=== PATIENT | male | born 1965 | race Caucasian/White ===

== ENCOUNTER 2019-10-15 13:30 | Inpatient (IN) | payer SELFPAY ==
[2019-10-15 14:12] LABS: #Eosinphils 0.2 thou/uL (0.0-0.7); #Lymphocytes 1.1 thou/uL (1.20-3.40); #Monocytes 0.7 thou/uL (0.11-0.59); #Neutrophils 5.5 thou/uL (1.40-6.50); %Basophils 0.3 % (0.0-1.0); %Eosinophils 2.8 % (0.0-10.0); %Monocytes 9.9 % (0.0-10.0); %Neutrophils 73.1 % (42.0-75.0); Hemoglobin 13.9 g/dL (14.0-18.0); Mean Corpuscular HGB CONC 32.9 g/dL (32.0-36.0); Mean Corpuscular Hemoglobin 29.9 pg (27.0-31.0); Mean Corpuscular Volume 90.8 fL (78.0-98.0); Mean Platelet Volume 9.9 fL (7.4-10.4); Platelet Count 269 thou/uL (130-400); RBC Distribution Width 13.4 % (11.5-14.5); Red Blood Cell (RBC) Count 4.66 mill/uL (4.70-6.10); White Blood Cell (WBC) Count 7.5 thou/uL (4.8-10.8)
--- NOTE | 2019-10-15 14:26 | RAD ---
Portable frontal chest radiograph: 10/15/2019 COMPARISON: None HISTORY: Dyspnea, chest pain with shortness of breath FINDINGS: Lungs are clear. Heart and mediastinal contours appear within normal limits. IMPRESSION: No acute findings.
[2019-10-15 14:39] LABS: ALT (SGPT) 12 U/L (8-55); AST (SGOT) 16 U/L (5-34); Albumin 4.3 g/dL (3.5-5.0); Alkaline Phosphatase 116 U/L (40-110); Anion Gap 12 mmol/L (10-20); BUN (Urea Nitrogen) 18 mg/dL (8.4-25.7); Bilirubin, Total 0.7 mg/dL (0.2-1.2); CK (CPK) 79 U/L (30-200); Calc. Creatinine Clearance 0 mL/min (70-130); Calcium 9.6 mg/dL (7.8-10.44); Carbon Dioxide 25 mmol/L (22-29); Chloride 106 mmol/L (98-107); Estimated GFR-MDRD 70; Globulin 2.7 g/dL (2.4-3.5); Glucose 105 mg/dL (70-105); Potassium 4.2 mmol/L (3.5-5.1); Sodium 139 mmol/L (136-145)
[2019-10-15 15:14] LABS: CKMB 1.6 ng/mL (0-6.6)
[2019-10-15] MEDS ORDERED: Acetaminophen 650 MG Suppository PR PRN (16:08)
--- NOTE | 2019-10-15 17:46 | PDOC.HHP ---
Hospitalist HPI - History of Present Illness Fatigue and shortness of breath History of Present Illness: Patient states he has a known history of heart failure and was recently discharged from hospice a month ago and has been advised to go back into hospice. According to the patient today is the first day he leaves his home in 3 weeks due to generalized weakness. He states he came down with a cold and flu like symptoms since 2-3 weeks. He tried driving down to [place] for a pool competition and states he felt completely drained. He has had a persistent dry cough and states it is triggered with deep inspiration. Denies any hemoptysis but has had blood draining from his nose as well as clear drainage. Denies any fevers or chills. No complaints of chest pain. 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 ED Course: EKG showed no ST changes or T wave abnormalities. Labs notable for a trop of 0.664, BNP 778, Hgb 13. 9, Hematocrit 42.3, WCC 7.5, Platelets 269. Na+ 139, K+ 4.2, BUN 18, Creat 1.11, GFR 70, LFTs normal Given aspirin and Lovenox 1 mg/kg Hospitalist ROS - Review of Systems Constitutional: reports: weakness, malaise Eyes: denies: pain, vision change, conjunctivae inflammation, eyelid inflammation, redness, other ENT: reports: nose discharge (clear and at times bloody at night). denies: ear pain, ear discharge, nose pain, nose congestion, mouth pain, mouth swelling, throat pain, throat swelling, other Respiratory: reports: cough (triggered by deep inspiration), SOB with excertion Cardiovascular: denies: chest pain, palpitations, orthopnea, paroxysmal noc. dyspnea, edema, light headedness, other Gastrointestinal: denies: nausea, vomiting, abdominal pain, diarrhea, constipation, melena, hematochezia, other Genitourinary: denies: dysuria, frequency, incontinence, hematuria, retention, other Musculoskeletal: denies: neck pain, shoulder pain, arm pain, back pain, hand pain, leg pain, foot pain, other Skin: denies: rash, lesions, zaria, bruising, other Neurological: denies: weakness, numbness, incoordination, change in speech, confusion, seizures, other Hospitalist History - Past Medical History Cardiac: reports: CHF - Past Surgical History Past Surgical History: reports: Other (Right wrist surgery Neck gland removal Right leg Colon surgery(colostomy)) - Social History Smoking Status: Current every day smoker Alcohol: reports: None Drugs: reports: none, Other (previous drug use years ago) - Exam General Appearance: NAD, awake alert Eye: PERRL, anicteric sclera ENT: normocephalic atraumatic, no oropharyngeal lesions Neck: supple, symmetric, no lymphadenopathy Heart: RRR, no murmur, no gallops, no rubs, normal peripheral pulses Respiratory: CTAB, no wheezes, no rales, no ronchi, normal chest expansion Gastrointestinal: soft, non-tender, non-distended, normal bowel sounds, no guarding, no rigidity (cf) Extremities: no edema Skin: normal turgor, no lesions, no rashes Neurological: cranial nerve grossly intact Musculoskeletal: normal tone, normal strength Psychiatric: A&O x 3, flat affect Hospitalist Results - Labs Result Diagrams: 10/15/19 14:01 10/15/19 14:01 Lab results: WBC 7.5 thou/uL (4.8-10.8) 10/15/19 14:01 Hgb 13.9 g/dL (14.0-18.0) L 10/15/19 14:01 Hct 42.3 % (42.0-52.0) 10/15/19 14:01 MCV 90.8 fL (78.0-98.0) 10/15/19 14:01 Plt Count 269 thou/uL (130-400) 10/15/19 14:01 Neutrophils % 73.1 % (42.0-75.0) 10/15/19 14:01 Sodium 139 mmol/L (136-145) 10/15/19 14:01 Potassium 4.2 mmol/L (3.5-5.1) 10/15/19 14:01 Chloride 106 mmol/L (98-107) 10/15/19 14:01 Carbon Dioxide 25 mmol/L (22-29) 10/15/19 14:01 BUN 18 mg/dL (8.4-25.7) 10/15/19 14:01 Creatinine 1.11 mg/dL (0.7-1.3) 10/15/19 14:01 Glucose 105 mg/dL (70-105) 10/15/19 14:01 Calcium 9.6 mg/dL (7.8-10.44) 10/15/19 14:01 Total Bilirubin 0.7 mg/dL (0.2-1.2) 10/15/19 14:01 AST 16 U/L (5-34) 10/15/19 14:01 ALT 12 U/L (8-55) 10/15/19 14:01 Alkaline Phosphatase 116 U/L (40-110) H 10/15/19 14:01 Creatine Kinase 79 U/L (30-200) 10/15/19 14:01 CK-MB (CK-2) 1.6 ng/mL (0-6.6) 10/15/19 14:01 Troponin I 0.664 ng/mL (< 0.028) H* 10/15/19 14:01 B-Natriuretic Peptide 778.1 pg/mL (0-100) H 10/15/19 14:01 Serum Total Protein 7.0 g/dL (6.0-8.3) 10/15/19 14:01 Albumin 4.3 g/dL (3.5-5.0) 10/15/19 14:01 - Radiology Interpretation Chest x-ray Status: report reviewed by me (Unremarkable) Hospitalist H&P A/P - Problem (1) NSTEMI (non-ST elevated myocardial infarction) Code(s): I21.4 - NON-ST ELEVATION (NSTEMI) MYOCARDIAL INFARCTION Status: Acute (2) Heart failure Code(s): I50.9 - HEART FAILURE, UNSPECIFIED Status: Acute Qualifiers: Heart failure chronicity: acute on chronic (3) Generalized weakness Code(s): R53.1 - WEAKNESS Status: Acute (4) Mild epistaxis Code(s): R04.0 - EPISTAXIS Status: Acute - Plan Plan: Patient given aspirin and Lovenox in the ED for NSTEMI. No chest pain. Consult placed to cardiology. Statin and Coreg as per discussion with Dr. Saxena. Patient apparently is DNAR and seeking to go back to hospice, discharged 1 month ago. Previously had a cath that showed normal coronaries. Has a hx of heavy steroid and cocaine use. Echo ordered. Last echo done showed EF 15%. No evidence of fluid retention. Will hold lovenox. Respiratory viral panel, as main complaint generalized weakness/flu like symptoms. Cardiac rehab consulted, inpatient and outpatient Palliative care consulted as well.
[2019-10-15] MEDS ORDERED: Aspirin 325 MG TAB ONE (17:56)
[2019-10-15 18:06] LABS: Critical Call Chem Troponin I RESULT DECREASING; Troponin I 0.595 ng/mL (< 0.028)
--- NOTE | 2019-10-15 18:21 | PDOC.EVN ---
Event Note - Event Note Event Note: i saw the patient and spoke with him in regards to his heart failure. He does not want icd and does not want any heroic measures. He has not been taking his meds and feels he has gained weight. I asked him if he wanted us to consult cardiology but he stated no. He know he has HF. He does want hospice. 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
[2019-10-15] MEDS ORDERED: Enoxaparin Sodium 100 MG/ML SYRINGE ONE (18:30)
[2019-10-15 20:44] LABS: Critical Call Chem Troponin I RESULT DECREASING; Troponin I 0.529 ng/mL (< 0.028)
[2019-10-15] MEDS: Nitroglycerin 0.4 MG TAB (25 Tab Bottle) SL PRN (20:45)
[2019-10-15] MEDS: Carvedilol 3.125 MG TAB PO SCH (21:41)
[2019-10-15] MEDS: Famotidine/PF 20 mg/2ml Vial SLOW IVP SCH (22:18)
[2019-10-15] MEDS: Atorvastatin Calcium 10 MG TAB PO SCH (22:19)
[2019-10-15] MEDS: Morphine 2 MG/ML SYRINGE SLOW IVP PRN (22:20)
[2019-10-16] MEDS: Nitroglycerin 0.4 MG TAB (25 Tab Bottle) SL PRN ×4 (01:37→08:23)
[2019-10-16 02:47] VITALS: BMI 27.2
[2019-10-16] MEDS: Morphine 2 MG/ML SYRINGE SLOW IVP PRN ×5 (03:24→20:34)
[2019-10-16 05:19] LABS: #Eosinphils 0.3 thou/uL (0.0-0.7); #Lymphocytes 1.8 thou/uL (1.20-3.40); #Monocytes 0.8 thou/uL (0.11-0.59); #Neutrophils 4.4 thou/uL (1.40-6.50); %Basophils 0.6 % (0.0-1.0); %Eosinophils 4.1 % (0.0-10.0); %Lymphocytes 24.7 % (21.0-51.0); %Monocytes 10.6 % (0.0-10.0); Hemoglobin 13.6 g/dL (14.0-18.0); Mean Corpuscular HGB CONC 32.8 g/dL (32.0-36.0); Mean Corpuscular Hemoglobin 29.7 pg (27.0-31.0); Mean Corpuscular Volume 90.5 fL (78.0-98.0); Mean Platelet Volume 10.4 fL (7.4-10.4); Platelet Count 248 thou/uL (130-400); RBC Distribution Width 13.3 % (11.5-14.5); White Blood Cell (WBC) Count 7.3 thou/uL (4.8-10.8)
[2019-10-16 05:42] LABS: Anion Gap 15 mmol/L (10-20); BUN (Urea Nitrogen) 19 mg/dL (8.4-25.7); Calc. Creatinine Clearance 102 mL/min (70-130); Calcium 9.5 mg/dL (7.8-10.44); Carbon Dioxide 21 mmol/L (22-29); Cardiac Risk 8.3 (Less than 4.5); Chloride 106 mmol/L (98-107); Cholesterol 198 mg/dl (< 200 Desired); Estimated GFR-MDRD 67; Glucose 126 mg/dL (70-105); HDL Cholesterol 24 mg/dL (>60 Neg Risk); LDL Cholesterol, Calculated 121 mg/dL; Potassium 3.6 mmol/L (3.5-5.1); Sodium 138 mmol/L (136-145); Triglycerides 264 mg/dL (Less than 150)
[2019-10-16] MEDS: Furosemide 20 MG/2 ML VIAL SLOW IVP SCH (08:35)
[2019-10-16] MEDS: Famotidine/PF 20 mg/2ml Vial SLOW IVP SCH ×2 (08:36→20:34)
[2019-10-16] MEDS: Carvedilol 3.125 MG TAB PO SCH ×2 (08:36→16:35)
[2019-10-16] MEDS ORDERED: Lisinopril 2.5 MG TAB PO SCH (09:00)
[2019-10-16] MEDS ORDERED: FLU VACC QS2019-20(6MOS UP)/PF 60 MCG/0.5 ML SYRINGE IM ONE (09:00)
--- NOTE | 2019-10-16 09:40 | PDOC.PALCO ---
Palliative Care Consult - Consult Details Requesting Physician: Dr Acevedo Reason for Consult: advance directives assistance, complex decision-making Family Members Present: none - Pertinent HPI 54 year old male with known heart failure. Previous hospice patient. Was discharged from hospice secondary to non compliance with morphine and visits. [facility] was previous provider of hospice services. Paitnet states he has had increase in weakness and fatigue, not able to leave his home for over 3 weeks secondary to symptoms. Pain is a 8/10 at times and across his chest , non radiating. - Pertinent PMH History of CHF, hypertension, past injury resulting in colostomy from bowel injury that has been repaired. - Social History Smoking Status: Smokes 11 or more cig/day Smoking: cigarettes Alcohol Use: occasional Drug Use History: none Living Situation: independent - Medications MAR Reviewed: Yes - Allergies Allergies/Adverse Reactions: Allergies Allergy/AdvReac Type Severity Reaction Status Date / Time No Known Allergies Allergy Verified 10/16/19 07:05 - Subjective Resting in bed, converses without shortness of breath, no o2 in use. Denies nausea, vomiting, headache, abdominal pain or discomfort, no difficulty urinating, negative for constipation. Positive for muscle weakness, cough non productive, clear drainage from nose with intermittent blood tinged mucous, weakness fatigue, shortness of breath with minimal exertion. - ROS Constitutional: malaise, sleep changes, weakness ENT: alteration in dentition, nose congestion, rhinorrhea Respiratory: shortness of breath with extertion Psychological: other (Denies depression but became tearful with conversation) - Objective Vital Signs: Vital Signs - Most Recent Temp Pulse Resp BP Pulse Ox 97.9 F 72 17 106/58 L 100 10/16/19 08:29 10/16/19 08:35 10/16/19 08:29 10/16/19 08:35 10/16/19 08:29 Palliative Performance Scale: 70 - Physical Exam Constitutional: NAD HEENT: EOMI, moist MMs, PERRLA, sclera anicteric Respiratory: clear to auscultation bilateral, unlabored breathing Cardiovascular: no significant murmur, RRR Gastrointestinal: soft, non-tender, positive bowel sounds (Scar to left mid abdominal wall) Genitourinary: continent Musculoskeletal: no cyanosis, no clubbing, no edema, pulses present Neurology: moves all 4 limbs, no focal deficits, normal sensation Lymphatic: no nodes Skin: cap refill <2 seconds, no lesions Psychiatric: normal affect - Problem List (1) Palliative care encounter Code(s): Z51.5 - ENCOUNTER FOR PALLIATIVE CARE Current Visit: Yes Status: Acute (2) Generalized weakness Code(s): R53.1 - WEAKNESS Current Visit: Yes Status: Acute (3) Heart failure Code(s): I50.9 - HEART FAILURE, UNSPECIFIED Current Visit: Yes Status: Acute Qualifiers: Heart failure chronicity: acute on chronic - Plan/Recommendations Plan: In history patient states that he lives in [place] the [place] alone but has a friend "Lita" who can assist in care for him. States that he has two children who he is estranged from Son 20 and Daughter 21. He also states that his and a 9 year old son perished in the floods in [place] a few years ago. Previous hospice care that was discontinued secondary to mis handling of narcotics and non compliance with appointments as per patient. States EF is 16% but did not notice documentation. *Discussed being followed by Cardiology/setting up appointment with pain clinic/ home health but patient did not want to pursue this as an option for discharge *States he desires to return to Hospice Care *Inquired if he thought he was depressed or had substance abuse concerns but he denied and did not want to peruse either avenue in further conversation or management. Will Santana RN will follow Palliative Care to address MPOA for patient Dr Saxena place Hospice consult with CM [60] minutes spent on this encounter with >50% of the time in counseling and coordination of care. Thank you for this very appropriate consult.
[2019-10-16 09:54] LABS: Medtox Reader # READER 1
[2019-10-16 09:55] LABS: Amphetamine Not Detected (NotDetected); Barbiturates Screen Not Detected (NotDetected); Benzodiazepine Screen Detected (NotDetected); Cocaine Metabolite Screen Not Detected (NotDetected); Medtox Control Line Valid? VALID (VALID); Methadone Not Detected (NotDetected); Methamphetamine Not Detected (NotDetected); Opiate Screen Detected (NotDetected); Oxycodone Screen Not Detected (NotDetected); Phencyclidine (PCP) Not Detected (NotDetected); THC/Cannabinoid Screen Not Detected (NotDetected); Tricyclic Screen Not Detected (NotDetected)
[2019-10-16] MEDS ORDERED: Levalbuterol HCl 0.63 MG/3 ML NEB NEB PRN (14:21)
--- NOTE | 2019-10-16 15:25 | PRG ---
DATE OF SERVICE: 10/16/2019 SUBJECTIVE: The patient was seen at bedside, admitted with weight gain, shortness of breath, and chest pain. The patient has positive troponins. As per the patient, he is a known case of cardiomyopathy and has been on hospice before. However, he was removed from hospice due to the patient traveling. As per the patient, he was performed a cath and he was offered AICD in the past, but he declined. Has a chest pain earlier, improved with morphine and nitroglycerin. Not in distress. OBJECTIVE: VITAL SIGNS: Temperature 97.4, pulse 91, respirations 22, oxygen saturation 95%, and blood pressure 115/72. GENERAL: The patient lying in bed comfortably, not in distress. HEENT: Conjunctivae normal. Oral mucosa moist. NECK: Supple. No JVD. No lymphadenopathy. CHEST: Normal vesicular breathing. No rhonchi. No wheezing. HEART: Sounds normal. No murmur. No gallop. No rub. ABDOMEN: Soft, benign, and nontender. No visceromegaly. EXTREMITIES: Negative edema of feet. LABORATORY DATA: BMP unremarkable except creatinine 1.15. Troponin 0.595, 0.529. ProBNP 778. LDL 121. CBC unremarkable except hemoglobin 13.6, white blood cells 7.3, and platelets 248. EKG, incomplete left bundle-branch block and nonspecific ST-T changes. IMPRESSION: 1. Acute on chronic systolic congestive heart failure. The patient has high proBNP and recently weight gain. Chest x-ray shows no acute findings. Continue Lasix. Continue to monitor fluid status. Continue oxygen. 2. Positive troponin, possible demand supply mismatch. As per the patient, he had a cardiac cath done in the past, which was negative. EKG showed left bundle-branch block, nonspecific ST-T changes. We will continue aspirin, statins, morphine pain medication. 3. History of nonischemic cardiomyopathy. As per the patient, he was offered automatic implantable cardioverter-defibrillator, but he refused. The patient had been seen in hospice. As per the patient, had been removed from hospice due to the patient traveling, he could not meet requirement for hospice. Discussed with the patient, he does not want any aggressive measures. He is DNR/DNI and wants transition back to hospice. Plan discussed with the patient and nursing staff. Job ID: [id number]
[2019-10-16] MEDS: Atorvastatin Calcium 10 MG TAB PO SCH (20:34)
--- NOTE | 2019-10-16 22:32 | CON ---
DATE OF CONSULTATION: HISTORY OF PRESENT ILLNESS: The patient is a 54-year-old gentleman with a history of nonischemic cardiomyopathy who presents with recurrent chest discomfort. The patient states that approximately 10 years ago he was diagnosed with a nonischemic cardiomyopathy, underwent cardiac catheterization, found to have normal coronary arteries. The patient has had a long history of persistent difficulty with chest discomfort. He underwent a repeat catheterization according to the patient three years ago. The patient once again was found to have normal coronary arteries. The patient has a known cardiomyopathy. He has been on hospice as he has declined to remain on hospice for the past year. He has declined on multiple occasions to have placement of an automatic implantable cardiac defibrillator. The patient presents once again with persistent left-sided chest discomfort. He was admitted for further evaluation. The patient states this chest pain is a continuous. PAST MEDICAL HISTORY: Cardiomyopathy. PAST SURGICAL HISTORY: Wrist surgery, leg surgery and colon surgery. SOCIAL HISTORY: Long history of tobacco abuse. ALLERGIES: NO KNOWN DRUG ALLERGIES. MEDICATIONS: See nursing list. PHYSICAL EXAMINATION: GENERAL: Well-developed gentleman who is anxious. VITAL SIGNS: Blood pressure 115/72. NECK: No jugular distention. LUNGS: Clear to auscultation. HEART: Regular rate and rhythm. Normal S1, S2. No murmurs. ABDOMEN: Nondistended. EXTREMITIES: Show no edema. VASCULAR: Radial pulses 2+. LABORATORY DATA: Sodium 138, potassium 3.6, chloride 106, bicarbonate 21, BUN 19, creatinine 1.1. Troponin was 0.0529. BNP 778. White blood cell count 7.3, hemoglobin 13.6, hematocrit 41.6 with platelets of 248. IMAGING: His EKG revealed him to have normal sinus rhythm with nonspecific interventricular conduction delay, T-wave abnormality suggestive of lateral ischemia. IMPRESSION: 1. Atypical chest discomfort. 2. Mildly elevated troponin level. 3. History of nonischemic cardiomyopathy. 4. Tobacco abuse. This gentleman presents with atypical chest pain. He has a history of cardiac cardiomyopathy and apparently has had 2 catheterizations, which have revealed normal coronary arteries. The patient has declined and placed on automatic implantable cardiac defibrillator. We will continue to treat the patient medically. We will follow this patient with you throughout his hospitalization. Job ID: [id number] [facility]
[2019-10-17] MEDS: Morphine 2 MG/ML SYRINGE SLOW IVP PRN ×6 (00:26→21:00)
[2019-10-17 04:57] LABS: #Eosinphils 0.4 thou/uL (0.0-0.7); #Lymphocytes 1.4 thou/uL (1.20-3.40); #Monocytes 0.8 thou/uL (0.11-0.59); #Neutrophils 5.2 thou/uL (1.40-6.50); %Basophils 0.6 % (0.0-1.0); %Eosinophils 4.8 % (0.0-10.0); %Lymphocytes 17.6 % (21.0-51.0); %Monocytes 10.7 % (0.0-10.0); %Neutrophils 66.4 % (42.0-75.0); Hemoglobin 13.9 g/dL (14.0-18.0); Mean Corpuscular HGB CONC 32.2 g/dL (32.0-36.0); Mean Corpuscular Hemoglobin 29.4 pg (27.0-31.0); Mean Corpuscular Volume 91.4 fL (78.0-98.0); Mean Platelet Volume 10.4 fL (7.4-10.4); Platelet Count 245 thou/uL (130-400); RBC Distribution Width 13.3 % (11.5-14.5); Red Blood Cell (RBC) Count 4.72 mill/uL (4.70-6.10); White Blood Cell (WBC) Count 7.8 thou/uL (4.8-10.8)
[2019-10-17] MEDS: Acetaminophen 325 MG TAB PO PRN ×2 (05:08→08:23)
[2019-10-17] MEDS: Nitroglycerin 0.4 MG TAB (25 Tab Bottle) SL PRN ×5 (05:08→08:33)
[2019-10-17 05:20] LABS: Anion Gap 12 mmol/L (10-20); BUN (Urea Nitrogen) 21 mg/dL (8.4-25.7); Calc. Creatinine Clearance 104 mL/min (70-130); Calcium 9.6 mg/dL (7.8-10.44); Carbon Dioxide 28 mmol/L (22-29); Chloride 103 mmol/L (98-107); Estimated GFR-MDRD 68; Glucose 89 mg/dL (70-105); Potassium 3.9 mmol/L (3.5-5.1); Sodium 139 mmol/L (136-145)
[2019-10-17] MEDS: Aspirin 81 mg Enteric Coated Tablet PO SCH (08:23)
[2019-10-17] MEDS ORDERED: Furosemide 100 MG/10 ML VIAL SLOW IVP SCH (09:00)
[2019-10-17] MEDS: Famotidine/PF 20 mg/2ml Vial SLOW IVP SCH ×2 (09:31→20:18)
[2019-10-17] MEDS: Furosemide 20 MG/2 ML VIAL SLOW IVP SCH (10:06)
[2019-10-17] MEDS: Carvedilol 3.125 MG TAB PO SCH ×2 (10:26→16:25)
[2019-10-17] MEDS: Lisinopril 2.5 MG TAB PO SCH ×2 (11:49→23:13)
--- NOTE | 2019-10-17 12:36 | PDOC.PALPN ---
Palliative Progress Note - Subjective Sitting in bed, his small dog is with him. Detached, only complaint is chest pressure that is mild, no pain. - Objective Vital Signs: Vital Signs - Most Recent Temp Pulse Resp BP Pulse Ox 97.6 F 91 18 110/73 94 L 10/17/19 11:47 10/17/19 11:49 10/17/19 11:47 10/17/19 11:49 10/17/19 11:47 - Physical Exam Constitutional: NAD HEENT: EOMI, moist MMs, sclera anicteric Respiratory: clear to auscultation bilateral, unlabored breathing Cardiovascular: no significant murmur, RRR Gastrointestinal: continent, positive bowel sounds Genitourinary: continent Musculoskeletal: no cyanosis, no edema, pulses present Neurology: moves all 4 limbs Skin: cap refill <2 seconds, no rash Psychiatric: A&O x 3 - Assessment (1) Palliative care encounter Code(s): Z51.5 - ENCOUNTER FOR PALLIATIVE CARE Current Visit: Yes Status: Acute (2) Generalized weakness Code(s): R53.1 - WEAKNESS Current Visit: Yes Status: Acute (3) Heart failure Code(s): I50.9 - HEART FAILURE, UNSPECIFIED Current Visit: Yes Status: Acute Qualifiers: Heart failure chronicity: acute on chronic - Plan Plan: Discussed options for discharge with patient. 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 [facility] [place] to [place]-evaluate patient. Also introduced again today option of Pain Clinic for pain medicaitons and to follow up with Heart Failure clinic. He would prefer to go back on hospice at this time for the total care they offer. Discussed also with A Izaguirre outbound supervisor Failure Coordinator. Will Santana payroll benefits administrator also to follow. [40] minutes spent on this encounter with >50% of the time in counseling and coordination of care. - ROS Constitutional: weakness, other (denies fever, poor appetite ) Eyes: other (denies vision changes) ENT: alteration in dentition Respiratory: shortness of breath with extertion, other (Denies cough, ) Cardiology: other Gastrointestinal: other (Denies abdominal pain, constipation) Musculoskeletal: other (Denies bone pain, ) Neurological: other (Denies headache, confusion, numbness)
[2019-10-17] MEDS: Furosemide 40 MG/4 ML VIAL SLOW IVP SCH (13:58)
[2019-10-17] MEDS ORDERED: Morphine 2 MG/ML SYRINGE SLOW IVP SCH (16:45)
--- NOTE | 2019-10-17 16:50 | PDOC.HOSPP ---
- Subjective Encounter Date: 10/17/19 Encounter Time: 16:48 Subjective: Chief complaint: shortness of breath Subjective: patient responding to lasix, urinating copiously, still has shortness of breath when he walks downstairs. Willing to back into hospice. Deneis chest pain. Some abdominal pain. - Objective Vital Signs & Weight: Vital Signs (12 hours) Temp Pulse Resp BP BP BP BP 10/17/19 15:14 97.6 F 81 16 113/78 10/17/19 14:02 109/66 10/17/19 11:49 91 110/73 10/17/19 11:47 97.6 F 91 18 110/73 10/17/19 10:30 110/82 10/17/19 08:19 97.5 F L 93 125/74 10/17/19 05:10 104/79 Pulse Ox 10/17/19 15:14 97 10/17/19 14:02 10/17/19 11:49 10/17/19 11:47 94 L 10/17/19 10:30 10/17/19 08:19 94 L 10/17/19 05:10 Weight Weight 211 lb 6.4 oz I&O: 10/16/19 10/17/19 10/18/19 06:59 06:59 06:59 Intake Total 1872 Output Total 2305 Balance -433 Result Diagrams: 10/17/19 03:56 10/17/19 03:55 Hospitalist ROS - Medication Medications: Active Medications Generic Name Dose Route Start Last Admin Trade Name Freq PRN Reason Stop Dose Admin Acetaminophen 650 mg 10/15/19 16:08 10/17/19 08:23 Tylenol PO 650 mg Q4H PRN Administration Headache/Fever/Mild Pain (1-3) Aspirin 81 mg 10/17/19 09:00 10/17/19 08:23 Ecotrin PO 81 mg DAILY LARISSA Administration Atorvastatin Calcium 10 mg 10/15/19 21:00 10/16/19 20:34 Lipitor PO 10 mg HS LARISSA Administration Carvedilol 3.125 mg 10/15/19 17:00 10/17/19 16:25 Coreg PO 3.125 mg BID-WM LARISSA Administration Famotidine 20 mg 10/15/19 21:00 10/17/19 09:31 Pepcid SLOW IVP 20 mg Q12HR LARISSA Administration Furosemide 40 mg 10/17/19 14:00 10/17/19 13:58 Lasix SLOW IVP 40 mg 0600,1400 LARISSA Administration Lisinopril 2.5 mg 10/17/19 09:00 10/17/19 11:49 Zestril PO 2.5 mg BID LARISSA Administration Morphine Sulfate 2 mg 10/15/19 18:13 10/17/19 16:25 Morphine SLOW IVP 2 mg Q4H PRN Administration Chest Pain Nitroglycerin 0.4 mg 10/15/19 17:29 10/17/19 08:33 Nitrostat SL 0.4 mg Q5MIN PRN Administration Chest Pain Sodium Chloride 10 ml 10/15/19 21:00 10/17/19 09:31 Flush - Normal Saline IVF 10 ml Q12HR LARISSA Administration - Exam General Appearance: NAD, awake alert Eye: PERRL, anicteric sclera ENT: normocephalic atraumatic, no oropharyngeal lesions Neck: supple, no JVD Heart: RRR, no murmur, no gallops, no rubs Respiratory: CTAB, no wheezes, no rales, no ronchi Gastrointestinal: soft, non-tender, non-distended, normal bowel sounds Extremities: no cyanosis, no clubbing, no edema Skin: no lesions, no rashes Neurological: cranial nerve grossly intact, normal sensation to touch, no weakness, no focal deficits Musculoskeletal: normal tone, normal strength Psychiatric: normal affect, normal behavior, A&O x 3 Hosp A/P - Plan Patient is a 54 year old male being treated for: # atypical chest discomfort with elevated troponin - appreciate cardiology evaluation, patient to be reevaluated to go back on hospice # history of NICM - patient was previously on hospice, no longer hospice but wants to go back to hospice # acute and chronic systolic CHF - echo reviewed, EF 10-15%, dilated L atrium, L ventricle, moderate MR/mild TR noted, continue current heart failure medications and lasix for diuresis, symptoms improved # history of tobacco abuse # abdominal pain - KUB ordered to rule out SBO or constipation Disposition - appreciate palliative care evaluation and assistance, patient with limited resources and exploring options for pain and heart failure clinic follow ups however patient wishes for hospice, case management note reviewed and patient rejected by [facility] and [facility] hesitant to take him back to their service, will continue to follow, appreciate case management efforts. 51 minutes care time over half of which counselling and coordination of care. all problems and patient new to me
--- NOTE | 2019-10-17 18:25 | RAD ---
KUB: 10/17/2019 COMPARISON: None HISTORY: Abdominal pain FINDINGS: Supine imaging limits assessment for free air and small bowel obstruction. The bowel gas pa ttern appears nonobstructed. No acute osseous abnormality is noted. IMPRESSION: No acute findings.
[2019-10-17] MEDS: Atorvastatin Calcium 10 MG TAB PO SCH (20:18)
[2019-10-18] MEDS: Morphine 2 MG/ML SYRINGE SLOW IVP PRN ×5 (00:53→22:17)
[2019-10-18] MEDS: Acetaminophen 325 MG TAB PO PRN (02:47)
[2019-10-18 04:11] LABS: #Eosinphils 0.4 thou/uL (0.0-0.7); #Lymphocytes 1.2 thou/uL (1.20-3.40); #Monocytes 0.8 thou/uL (0.11-0.59); #Neutrophils 4.8 thou/uL (1.40-6.50); %Basophils 0.5 % (0.0-1.0); %Eosinophils 4.9 % (0.0-10.0); %Lymphocytes 17.1 % (21.0-51.0); %Neutrophils 66.5 % (42.0-75.0); Hemoglobin 14.3 g/dL (14.0-18.0); Mean Corpuscular HGB CONC 32.8 g/dL (32.0-36.0); Mean Corpuscular Hemoglobin 29.6 pg (27.0-31.0); Mean Platelet Volume 9.5 fL (7.4-10.4); Platelet Count 240 thou/uL (130-400); RBC Distribution Width 13.1 % (11.5-14.5); Red Blood Cell (RBC) Count 4.85 mill/uL (4.70-6.10); White Blood Cell (WBC) Count 7.3 thou/uL (4.8-10.8)
[2019-10-18 04:32] LABS: Anion Gap 14 mmol/L (10-20); BUN (Urea Nitrogen) 27 mg/dL (8.4-25.7); Calc. Creatinine Clearance 95 mL/min (70-130); Calcium 9.5 mg/dL (7.8-10.44); Carbon Dioxide 27 mmol/L (22-29); Chloride 100 mmol/L (98-107); Estimated GFR-MDRD 61; Glucose 109 mg/dL (70-105); Potassium 3.6 mmol/L (3.5-5.1); Sodium 137 mmol/L (136-145)
[2019-10-18] MEDS: Furosemide 40 MG/4 ML VIAL SLOW IVP SCH ×2 (04:56→13:06)
[2019-10-18] MEDS ORDERED: Carvedilol 3.125 MG TAB PO SCH (07:51)
[2019-10-18] MEDS: Carvedilol 6.25 MG TAB PO SCH ×2 (08:01→17:52)
[2019-10-18] MEDS: Spironolactone 25 MG TAB PO SCH (08:02)
[2019-10-18] MEDS: Famotidine/PF 20 mg/2ml Vial SLOW IVP SCH ×2 (08:56→20:12)
[2019-10-18] MEDS: Aspirin 81 mg Enteric Coated Tablet PO SCH (08:56)
[2019-10-18] MEDS: Lisinopril 2.5 MG TAB PO SCH ×2 (08:57→20:12)
--- NOTE | 2019-10-18 18:33 | PDOC.HOSPP ---
- Subjective Encounter Date: 10/18/19 Encounter Time: 13:00 Subjective: CC: dysynpea on exertion Subjective: still reports shortness of breath with stairs, no chest pain, has been rejected from multiple hospice companies, looking for a plan B. nurse reports female friend reports that she is diagnosed with trichomonas and wants patient tested/treated. Patietn not complaining of symptoms. - Objective Vital Signs & Weight: Vital Signs (12 hours) Temp Pulse Resp BP BP BP BP 10/18/19 16:00 97.5 F L 71 16 116/69 10/18/19 12:00 73 16 93/53 L 10/18/19 11:51 97.5 F L 73 16 90/61 10/18/19 08:57 71 107/59 L 10/18/19 08:01 111/68 10/18/19 07:53 97.6 F 89 16 111/68 Pulse Ox 10/18/19 16:00 95 10/18/19 12:00 10/18/19 11:51 93 L 10/18/19 08:57 10/18/19 08:01 10/18/19 07:53 98 Weight Weight 211 lb 6.4 oz I&O: 10/17/19 10/18/19 10/19/19 06:59 06:59 06:59 Intake Total 1872 960 Output Total 2305 700 Balance -433 260 Result Diagrams: 10/18/19 04:04 10/18/19 04:04 Hospitalist ROS - Medication Medications: Active Medications Generic Name Dose Route Start Last Admin Trade Name Freq PRN Reason Stop Dose Admin Acetaminophen 650 mg 10/15/19 16:08 10/18/19 02:47 Tylenol PO 650 mg Q4H PRN Administration Headache/Fever/Mild Pain (1-3) Aspirin 81 mg 10/17/19 09:00 10/18/19 08:56 Ecotrin PO 81 mg DAILY LARISSA Administration Atorvastatin Calcium 10 mg 10/15/19 21:00 10/17/19 20:18 Lipitor PO 10 mg HS LARISSA Administration Famotidine 20 mg 10/15/19 21:00 10/18/19 08:56 Pepcid SLOW IVP 20 mg Q12HR LARISSA Administration Furosemide 40 mg 10/17/19 14:00 10/18/19 13:06 Lasix SLOW IVP 40 mg 0600,1400 LARISSA Administration Lisinopril 2.5 mg 10/17/19 09:00 10/18/19 08:57 Zestril PO 2.5 mg BID LARISSA Administration Nitroglycerin 0.4 mg 10/15/19 17:29 10/17/19 08:33 Nitrostat SL 0.4 mg Q5MIN PRN Administration Chest Pain Sodium Chloride 10 ml 10/15/19 21:00 10/18/19 09:05 Flush - Normal Saline IVF 10 ml Q12HR LARISSA Administration Spironolactone 25 mg 10/18/19 08:00 10/18/19 08:02 Aldactone PO 25 mg QAM-WM LARISSA Administration - Exam General Appearance: NAD, awake alert Eye: PERRL, anicteric sclera ENT: normocephalic atraumatic, moist mucosa Neck: supple, symmetric, no JVD Heart: RRR, no murmur, no gallops, no rubs Respiratory: CTAB, no wheezes, no rales, no ronchi Gastrointestinal: soft, non-tender, non-distended, normal bowel sounds Extremities: no cyanosis, no clubbing, no edema Skin: no lesions, no rashes Neurological: cranial nerve grossly intact, normal sensation to touch, no weakness, no focal deficits Musculoskeletal: normal tone, normal strength Psychiatric: normal affect, normal behavior, A&O x 3 Hosp A/P - Plan Patient is a 54 year old male being treated for: # atypical chest discomfort with elevated troponin - appreciate cardiology evaluation, patient hospice appropriate # history of NICM - appreciate cardiology evaluation, patient hospice appropriate # acute and chronic systolic CHF - echo reviewed, EF 10-15%, dilated L atrium, L ventricle, moderate MR/mild TR noted, continue current heart failure medications and lasix for diuresis, symptoms improved since admission but still limit patient activity, cant go up stairs to room without stopping # history of tobacco abuse # abdominal pain - KUB ordered to rule out SBO or constipation Disposition - appreciate palliative care evaluation and assistance, patient rejected from multiple hospice companies, looking for a plan B
[2019-10-18] MEDS: Atorvastatin Calcium 10 MG TAB PO SCH (20:12)
[2019-10-19] MEDS: Acetaminophen 325 MG TAB PO PRN ×2 (04:13→10:47)
[2019-10-19 04:45] LABS: #Basophils 0.1 thou/uL (0.0-0.2); #Eosinphils 0.3 thou/uL (0.0-0.7); #Lymphocytes 1.3 thou/uL (1.20-3.40); #Monocytes 0.8 thou/uL (0.11-0.59); #Neutrophils 4.8 thou/uL (1.40-6.50); %Basophils 1.5 % (0.0-1.0); %Eosinophils 3.9 % (0.0-10.0); %Lymphocytes 18.1 % (21.0-51.0); %Monocytes 11.3 % (0.0-10.0); %Neutrophils 65.2 % (42.0-75.0); Hemoglobin 14.8 g/dL (14.0-18.0); Mean Corpuscular HGB CONC 32.7 g/dL (32.0-36.0); Mean Corpuscular Hemoglobin 29.7 pg (27.0-31.0); Mean Corpuscular Volume 90.7 fL (78.0-98.0); Platelet Count 241 thou/uL (130-400); RBC Distribution Width 13.3 % (11.5-14.5); Red Blood Cell (RBC) Count 4.99 mill/uL (4.70-6.10); White Blood Cell (WBC) Count 7.3 thou/uL (4.8-10.8)
[2019-10-19 05:03] LABS: Anion Gap 12 mmol/L (10-20); BUN (Urea Nitrogen) 29 mg/dL (8.4-25.7); Calc. Creatinine Clearance 99 mL/min (70-130); Calcium 9.5 mg/dL (7.8-10.44); Carbon Dioxide 28 mmol/L (22-29); Chloride 103 mmol/L (98-107); Estimated GFR-MDRD 65; Glucose 114 mg/dL (70-105); Potassium 3.5 mmol/L (3.5-5.1); Sodium 139 mmol/L (136-145)
[2019-10-19] MEDS: Morphine 2 MG/ML SYRINGE SLOW IVP PRN (05:48)
[2019-10-19] MEDS: Furosemide 40 MG/4 ML VIAL SLOW IVP SCH (05:52)
[2019-10-19 08:33] VITALS: TEMP 97.6
[2019-10-19] MEDS: Aspirin 81 mg Enteric Coated Tablet PO SCH (08:34)
[2019-10-19] MEDS: Spironolactone 25 MG TAB PO SCH (08:34)
[2019-10-19] MEDS: Lisinopril 2.5 MG TAB PO SCH (08:35)
[2019-10-19] MEDS: Famotidine/PF 20 mg/2ml Vial SLOW IVP SCH (08:35)
--- NOTE | 2019-10-19 12:02 | PDOC.CPN ---
- Subjective Date: 10/19/19 Time: 08:30 Interval history: The pt seen and examined. No overnight events. No cardiac complaints. - Objective Allergies/Adverse Reactions: Allergies Allergy/AdvReac Type Severity Reaction Status Date / Time No Known Allergies Allergy Verified 10/16/19 07:05 Visit Medications: Current Medications Acetaminophen (Tylenol) 650 mg PO Q4H PRN PRN Reason: Headache/Fever/Mild Pain (1-3) Last Admin: 10/19/19 10:47 Dose: 650 mg Acetaminophen (Tylenol) 650 mg FL Q4H PRN PRN Reason: Headache/Fever/Mild Pain (1-3) Aspirin (Ecotrin) 81 mg PO DAILY [facility] Last Admin: 10/19/19 08:34 Dose: 81 mg Atorvastatin Calcium (Lipitor) 10 mg PO HS [facility] Last Admin: 10/18/19 20:12 Dose: 10 mg Famotidine (Pepcid) 20 mg SLOW IVP Q12HR [facility] Last Admin: 10/19/19 08:35 Dose: 20 mg Furosemide (Lasix) 40 mg PO 0900,1400 [facility] Levalbuterol HCl (Xopenex) 0.63 mg NEB [id number] PRN PRN Reason: SOB &/or Wheezing Morphine Sulfate (Morphine) 2 mg SLOW IVP Q8H PRN PRN Reason: Chest Pain Last Admin: 10/19/19 05:48 Dose: 2 mg Nitroglycerin (Nitrostat) 0.4 mg SL Q5MIN PRN PRN Reason: Chest Pain Last Admin: 10/17/19 08:33 Dose: 0.4 mg Sodium Chloride (Flush - Normal Saline) 10 ml IVF Q12HR [facility] Last Admin: 10/19/19 08:35 Dose: 10 ml Sodium Chloride (Flush - Normal Saline) 10 ml IVF PRN PRN PRN Reason: Saline Flush Spironolactone (Aldactone) 25 mg PO QAM-WM [facility] Last Admin: 10/19/19 08:34 Dose: 25 mg Vital Signs & Weight: Vital Signs Temp Pulse Resp BP Pulse Ox 10/19/19 08:30 97.6 F 80 18 104/63 98 10/19/19 04:00 98.1 F 81 20 146/85 H 96 Weight 211 lb 6.4 oz - Physical Exam General: alert & oriented x3 HEENT: mucus membranes moist Neck: supple neck Cardiac: regular rate and rhythm, S1/S2 Lungs: clear to auscultation Neuro: cranial nerve 2-12 intact Skin: clear Musculoskeletal: normal range of motion - Labs Result Diagrams: 10/19/19 04:13 10/19/19 04:13 Troponin/CKMB CK-MB (CK-2) 1.6 ng/mL (0-6.6) 10/15/19 14:01 Troponin I 0.529 ng/mL (< 0.028) H* 10/15/19 20:04 - Telemetry Sinus rhythms and dysrhythmias: sinus rhythm - Assessment/Plan Assessment/Plan: 1. Acute on chronic Systolic HF with EF 10-15% - stable with RA; decrease Lisinopril 2.5mg from BID to qd and will start Coreg 3.125mg 1/2 tab BID from today; On Lasix 2. Non-ischemic CMY - The pt declined AICD placement 3. Atypical CP - asymptomatic today 4. type 2 NSTEMI - 2/2 demand ischemia; 5. Tobacco abuse MAR reviewed * Echo in 09/2019 with EF 10-15%, mildly dilated LA, mild MR, TR, and severe LVH Pt. seen and eval. by me. I agree with the A/P by the BRANCH OFFICE MANAGER.Continue medical management. Chest clear. RRR.
[2019-10-19 12:12] VITALS: BP 111/79
--- NOTE | 2019-10-19 13:02 | PDOC.HOSPP ---
- Subjective Encounter Date: 10/19/19 Encounter Time: 13:00 Subjective: Chief complaint: Dyspnea on exertion Subjective: Patient in bed, reports continued INMAN, no chest pain, no other complaints. Has been denied by 3 hospice companies, tentative plan B is discharge with PCP and heart failure clinic appointments. Cardiology changed to PO lasix today along with other med changes. - Objective Vital Signs & Weight: Vital Signs (12 hours) Temp Pulse Resp BP BP Pulse Ox 10/19/19 12:00 97.6 F 66 18 111/79 97 10/19/19 08:30 97.6 F 80 18 104/63 98 10/19/19 04:00 98.1 F 81 20 146/85 H 96 Weight Weight 211 lb 6.4 oz I&O: 10/18/19 10/19/19 10/20/19 06:59 06:59 06:59 Intake Total 960 1999 Output Total 700 Balance 260 1999 Result Diagrams: 10/19/19 04:13 10/19/19 04:13 Hospitalist ROS - Medication Medications: Active Medications Generic Name Dose Route Start Last Admin Trade Name Freq PRN Reason Stop Dose Admin Acetaminophen 650 mg 10/15/19 16:08 10/19/19 10:47 Tylenol PO 650 mg Q4H PRN Administration Headache/Fever/Mild Pain (1-3) Aspirin 81 mg 10/17/19 09:00 10/19/19 08:34 Ecotrin PO 81 mg DAILY LARISSA Administration Atorvastatin Calcium 10 mg 10/15/19 21:00 10/18/19 20:12 Lipitor PO 10 mg HS LARISSA Administration Famotidine 20 mg 10/15/19 21:00 10/19/19 08:35 Pepcid SLOW IVP 20 mg Q12HR LARISSA Administration Morphine Sulfate 2 mg 10/18/19 16:15 10/19/19 05:48 Morphine SLOW IVP 2 mg Q8H PRN Administration Chest Pain Nitroglycerin 0.4 mg 10/15/19 17:29 10/17/19 08:33 Nitrostat SL 0.4 mg Q5MIN PRN Administration Chest Pain Sodium Chloride 10 ml 10/15/19 21:00 10/19/19 08:35 Flush - Normal Saline IVF 10 ml Q12HR LARISSA Administration Spironolactone 25 mg 10/18/19 08:00 10/19/19 08:34 Aldactone PO 25 mg QAM-WM LARISSA Administration - Exam General Appearance: NAD, awake alert Eye: PERRL, anicteric sclera ENT: normocephalic atraumatic, moist mucosa Neck: supple, symmetric, no JVD Heart: RRR, no murmur, no gallops, no rubs Respiratory: CTAB, no wheezes, no rales, no ronchi Gastrointestinal: soft, non-tender, non-distended, normal bowel sounds Extremities: no cyanosis, no clubbing, no edema Skin: no lesions, no rashes Neurological: cranial nerve grossly intact, normal sensation to touch, no weakness, no focal deficits Musculoskeletal: normal tone, normal strength Psychiatric: normal affect, normal behavior, A&O x 3 Hosp A/P - Plan Patient is a 54 year old male being treated for: # atypical chest discomfort with elevated troponin - appreciate cardiology evaluation, patient hospice appropriate - switched to PO lasix today, will discuss discharge timing with clotilde Armstrong PA # history of NICM - appreciate cardiology evaluation, patient hospice appropriate # acute and chronic systolic CHF - echo report reviewed, EF 10-15%, dilated L atrium, L ventricle, moderate MR/mild TR noted, continue current heart failure medications and lasix for diuresis, symptoms improved since admission but still limit patient activity, cant go up stairs to room without stopping # history of tobacco abuse - noted # abdominal pain - resolved, KUB without acute findings Disposition - appreciate palliative care evaluation and assistance, patient rejected from multiple hospice companies, plan for d/c with outpatient heart failure and PCP followup once cleared by cardiology
[2019-10-19] MEDS ORDERED: Furosemide 40 MG TAB PO SCH (14:00)
[2019-10-19] MEDS ORDERED: Carvedilol 3.125 MG TAB PO SCH (17:00)
[2019-10-20] MEDS ORDERED: Lisinopril 2.5 MG TAB PO SCH (09:00)
--- NOTE | 2019-10-21 12:49 | EKG ---
Test Reason : C/O CHEST PAIN Blood Pressure : / mmHG Vent. Rate : 069 BPM Atrial Rate : 069 BPM P-R Int : 172 ms QRS Dur : 112 ms QT Int : 454 ms P-R-T Axes : 053 021 228 degrees QTc Int : 486 ms Normal sinus rhythm Possible Left atrial enlargement Low voltage QRS Incomplete left bundle branch block Prolonged QT Abnormal ECG No previous ECGs available Confirmed by HOLLAND MEMBRENO (2) on 10/21/2019 12:49:18 PM Referred By: BERNARDO Confirmed By:HOLLAND MEMBRENO
--- NOTE | 2019-10-21 14:06 | EKG ---
Test Reason : C/O CHEST PAIN Blood Pressure : / mmHG Vent. Rate : 069 BPM Atrial Rate : 069 BPM P-R Int : 172 ms QRS Dur : 124 ms QT Int : 412 ms P-R-T Axes : 063 085 240 degrees QTc Int : 441 ms Normal sinus rhythm Possible Left atrial enlargement Non-specific intra-ventricular conduction delay Abnormal ECG When compared with ECG of 16-OCT-2019 08:29, (Unconfirmed) Questionable change in QRS axis Confirmed by HOLLAND MEMBRENO (2) on 10/21/2019 2:06:04 PM Referred By: GRECIA Confirmed By:HOLLAND MEMBRENO
--- NOTE | 2019-10-22 04:59 | PQF ---
Fly Arias MICHAEL, MD [id number] CLINICAL DOCUMENTATION CLARIFICATION FORM: POST DISCHARGE Addendum to original discharge summary date: ____ Late entry note date: __ DATE: 10/22/2019 ATTN:MARCELO TRIANA MD Please exercise your independent, professional judgment in responding to the clarification form. Clinical indicators are provided on the bottom of this form for your review Please check appropriate box(s): Conflicting documentation was noted in the Medical Record, please clarify if patient is being treated/monitored for: [ ] Non-ST elevated myocardial infarction [ ] Type2 NSTEMI 2/2 demand ischemia [ ] Atypical chest comfort with elevated troponin [ ] Other diagnosis [ ] Unable to determine For continuity of documentation, please document condition throughout progress notes and discharge summary. Thank You. CLINICAL INDICATORS - SIGNS / SYMPTOMS/ LABS - Non-ST elevated myocardial infarction, status: Acute- H&P, 10/21, Sepideh MARTINES -Atypical chest comfort with elevated troponin-Hospital PN, 10/19, MARCELO TRIANA MD -Type2 NSTEMI 2/2 demand ischemia-Cardiology PN, 10/19, Froylan Rolon MD -Troponin I: 0.664, 0.595, 0.529H- Laboratory, 10/15 -positive troponin, possible demand supply mismatch-Progress note, 10/16, Haroldo Gimenez MD -EKG showed LBBB, non specific ST-T changes- Progress note, 10/16, Haroldo Gimenez MD RISK FACTORS -Non-ischemic CMY-Cardiology PN, 10/19, Froylan Rolon MD -Acute on chronic systolic HF-Cardiology PN, 10/19, Froylan Rolon MD TREATMENT -Aspirin.IV-JAN, 10/15 -Furosemide.IV- MAR, 10/15 (This form is maintained as a part of the permanent medical record) 2014 [employer]. All Rights Reserved Josephine Alford [not provided] [not provided] LEIA
== END 2019-10-19 15:00 | disposition home or self-care (01) | DRG 282 ==
LOC: ERS 13:30 → 2NO 20:26
PROVIDERS: ADMIT Internal Medicine; ATTEND Internal Medicine
DX: I11.0 Hypertensive heart disease with heart failure (principal); I21.A1 Myocardial infarction type 2; I50.23 Acute on chronic systolic (congestive) heart failure; I42.8 Other cardiomyopathies; F17.210 Nicotine dependence, cigarettes, uncomplicated; R04.0 Epistaxis; Z51.5 Encounter for palliative care; R10.9 Unspecified abdominal pain; R07.89 Other chest pain; F17.200 Nicotine dependence, unspecified, uncomplicated; Z93.3 Colostomy status
CPT/HCPCS: 36415; 71045; 74018; 80048; 80053; 80061; 80306; 82550; 82553; 83735; 83880; 84484; 85025; 87633; 90471; 90686; 90732; 93005; 93010; 93306; 93798; 96372; G0008; G0009; J1650; J1940; J2270; S0028

== ENCOUNTER 2019-12-10 10:02 | Inpatient (IN) | payer SELFPAY ==
[2019-12-10 10:30] LABS: #Eosinphils 0.1 thou/uL (0.0-0.7); #Lymphocytes 1.6 thou/uL (1.20-3.40); #Monocytes 0.6 thou/uL (0.11-0.59); %Basophils 0.4 % (0.0-1.0); %Eosinophils 1.2 % (0.0-10.0); %Lymphocytes 18.7 % (21.0-51.0); %Monocytes 7.4 % (0.0-10.0); %Neutrophils 72.3 % (42.0-75.0); Hemoglobin 13.8 g/dL (14.0-18.0); Mean Corpuscular HGB CONC 32.5 g/dL (32.0-36.0); Mean Corpuscular Hemoglobin 30.1 pg (27.0-31.0); Mean Corpuscular Volume 92.7 fL (78.0-98.0); Mean Platelet Volume 10.2 fL (7.4-10.4); Platelet Count 169 thou/uL (130-400); RBC Distribution Width 14.1 % (11.5-14.5); Red Blood Cell (RBC) Count 4.57 mill/uL (4.70-6.10); White Blood Cell (WBC) Count 8.3 thou/uL (4.8-10.8)
[2019-12-10] MEDS ORDERED: Lorazepam 2 MG/ML VIAL ONE (10:50)
[2019-12-10] MEDS ORDERED: methylPREDNISolone Sod Succ/PF 125 MG/2 ML VIAL ONE (10:51)
[2019-12-10 10:53] LABS: ALT (SGPT) 11 U/L (8-55); AST (SGOT) 18 U/L (5-34); Albumin 4.2 g/dL (3.5-5.0); Alkaline Phosphatase 100 U/L (40-110); Anion Gap 12 mmol/L (10-20); BUN (Urea Nitrogen) 23 mg/dL (8.4-25.7); Bilirubin, Total 1.4 mg/dL (0.2-1.2); Calc. Creatinine Clearance 0 mL/min (70-130); Calcium 9.8 mg/dL (7.8-10.44); Carbon Dioxide 25 mmol/L (22-29); Chloride 106 mmol/L (98-107); Estimated GFR-MDRD 51; Globulin 2.4 g/dL (2.4-3.5); Glucose 120 mg/dL (70-105); Potassium 4.5 mmol/L (3.5-5.1); Protein, Total 6.6 g/dL (6.0-8.3); Sodium 138 mmol/L (136-145)
--- NOTE | 2019-12-10 10:54 | RAD ---
PORTABLE CHEST 1 VIEW: Date: 12/10/2019 Time: 1043 hours HISTORY: Difficulty breathing, CHF. FINDINGS/IMPRESSION: Comparison made with exam of 10/15/2019. The heart size is borderline. The lungs are expanded without lobar consolidation, pneumothoraces, fra nk pulmonary edema, or pleural effusions. POS: [facility]
[2019-12-10 11:19] LABS: CKMB 3.7 ng/mL (0-6.6)
[2019-12-10] MEDS ORDERED: Aspirin Chewable 81 MG TAB ONE (11:47)
[2019-12-10] MEDS ORDERED: Ondansetron ODT 4 MG TAB PO PRN (12:53)
[2019-12-10] MEDS ORDERED: hydrALAZINE 20 MG/ML VIAL SLOW IVP PRN (12:53)
[2019-12-10] MEDS ORDERED: Ondansetron PF 4 MG/2 ML Vial IVP PRN (12:53)
[2019-12-10] MEDS ORDERED: Labetalol HCl 100 MG/20 ML VIAL SLOW IVP PRN (12:53)
[2019-12-10 13:55] LABS: Troponin I 0.037 ng/mL (< 0.028)
[2019-12-10] MEDS ORDERED: Acetaminophen 500 MG TAB ONE (14:06)
[2019-12-10] MEDS ORDERED: Furosemide 40 MG/4 ML VIAL ONE (14:06)
[2019-12-10] MEDS: Acetaminophen 500 MG TAB PO PRN (14:16)
[2019-12-10] MEDS: Furosemide 40 MG/4 ML VIAL SLOW IVP SCH (14:23)
--- NOTE | 2019-12-10 15:18 | HP ---
PRIMARY CARE PROVIDER: [place], [place]. CHIEF COMPLAINT: Shortness of breath. HISTORY OF PRESENT ILLNESS: This is a 54-year-old male with a significant history of severe cardiomyopathy with ejection fraction in the 10% range on current Entresto and Lasix. The patient states he was working on a home [employer] within the last 24 hours when he noticed increasing shortness of breath, fatigue, and exercise tolerance. The patient states he is on chronic oxygen supplementation at 4 L/minute by nasal cannula at baseline and noted increased shortness of breath even with the use of oxygen. The patient denied any specific significant weight change or increase and denied any lower extremity swelling. The patient states he was evaluated by his primary evp marketing, Dr. Haley, within the last 1 to 2 weeks and placed on Entresto. The patient admits to increasing abdominal girth with some abdominal discomfort and states he has decreased appetite. The patient denies any change to his bowel habits, hematuria, hematemesis, or melena. The patient denied any dysuria or recent fever exposure history. The patient states he has been compliant with his medication regimen and denied any recent travel or exposure history. The patient does admit to taking extra doses of Lasix for symptom relief. However, this was unsuccessful and his shortness of breath progressed. In the emergency room, the patient underwent general evaluation including chest imaging showing no significant pulmonary edema. BNP was noted at over 2800, previously assessed at 778 in September of 2019. In the emergency room, the patient received aspirin 324 mg in addition to DuoNeb, Ativan, and Solu-Medrol. The patient was referred to the Hospitalist Service for further evaluation. PAST MEDICAL HISTORY: 1. Nonischemic cardiomyopathy with ejection fraction of 10% to 15%. 2. Chronic hypoxic respiratory failure, on oxygen supplementation at 4 L/minute by nasal cannula. 3. Tobacco abuse. PAST SURGICAL HISTORY: 1. Status post right wrist repair. 2. Status post gland removal of the neck. 3. Status post right leg surgery. 4. Status post colostomy. CURRENT MEDICATIONS: 1. Aspirin 81 mg p.o. daily. 2. Lipitor 10 mg p.o. at bedtime. 3. Entresto 24/26 mg p.o. daily. 4. Spironolactone 25 mg p.o. daily. 5. Potassium chloride 10 mEq p.o. daily. 6. Carvedilol 1.5625 mg p.o. b.i.d. 7. Lasix 40 mg p.o. b.i.d. ALLERGIES: NO KNOWN DRUG ALLERGIES. FAMILY HISTORY: Positive for hypertension. SOCIAL HISTORY: The patient resides in the [place], [place] area. Smokes up to half a pack of cigarettes daily. No alcohol or illicit drug use. Remote history of illicit drug use. REVIEW OF SYSTEMS: CONSTITUTIONAL: Negative for weight loss or gain, ability to conduct usual activities. SKIN: Negative for rash, itching. EYES: Negative for double vision, pain. ENT/MOUTH: Negative for nose bleeding, neck stiffness, pain, tenderness. CARDIOVASCULAR: Negative for palpitations, dyspnea on exertion, orthopnea. RESPIRATORY: Negative for shortness of breath, wheezing, cough, hemoptysis, fever or night sweats. GASTROINTESTINAL: Negative for poor appetite, abdominal pain, heartburn, nausea, vomiting, constipation, or diarrhea. GENITOURINARY: Negative for urgency, frequency, dysuria, nocturia. MUSCULOSKELETAL: Negative for pain, swelling. NEUROLOGIC/PSYCHIATRIC: Negative for anxiety, depression. ALLERGY/IMMUNOLOGIC: Negative for skin rash, bleeding tendency. Otherwise, negative except as stated per HPI. PHYSICAL EXAMINATION: VITAL SIGNS: On admission; blood pressure 117/77, pulse 94, respiratory rate 24, temperature 97.6 degrees Fahrenheit, and O2 saturation 100% on 4 L/minute by nasal cannula. GENERAL APPEARANCE: This is a 54-year-old male, agitated, standing at the bedside in [id number] distress. HEENT: Pupils are equal, round, and reactive to light and accommodation. Extraocular muscles are intact. No scleral icterus. No conjunctival injection. Nares patent. OP is clear. Teeth in fair repair. NECK: Supple. No cervical adenopathy. No thyromegaly. No carotid bruits. No JVD appreciated. Cervical spine with full active and passive range of motion. No meningeal signs noted. CHEST: Diminished breath sounds in the bases bilaterally. CARDIOVASCULAR: S1 and S2 without noted murmur, rub, or gallop. Heart sounds are distant. ABDOMEN: Protuberant with mild tenderness to palpation in the midepigastric region. Questionable fluid wave versus midline abdominal hernia. Bowel sounds are positive in all 4 quadrants. No palpable mass. Umbilical hernia noted. EXTREMITIES: Warm and dry with fair turgor. No clubbing, cyanosis, or asymmetric edema appreciated. Pulses palpable distally at the dorsalis pedis, posterior tibial, and popliteal arteries bilaterally. Capillary refill less than 2 seconds. NEUROLOGIC: Cranial nerves II through XII are grossly intact. No focal or lateralizing signs appreciated. PERTINENT LABORATORY AND X-RAY FINDINGS: Sodium 138, potassium 4.5, chloride 106, CO2 of 25, BUN 23, creatinine 1.45, estimated GFR 51, glucose 120, calcium 9.8, total bilirubin 1.4, AST 18, ALT of 11, and alkaline phosphatase 100. Total CK 204, troponin I 0.042. BNP 2846, previously noted 778 on 10/15/2019. CBC within normal limits. Portable chest x-ray dated 12/10/2019 showed cardiomegaly without acute infiltrate or effusion. EKG dated 12/10/2019 by my interpretation shows sinus mechanism with heart rates in the 90s. Attenuated R-waves noted in the precordial leads. Normal axis. No acute ST-T wave changes appreciated. ASSESSMENT AND PLAN: 1. Acute on chronic systolic congestive heart failure. The patient will be admitted to the telemetry unit. We will continue Lasix 40 mg IV q.12 hours. Repeat 2D transthoracic echocardiogram for assessment of ejection fraction and valvular function. Consult Cardiology Service for further recommendations and evaluation. Monitor daily weights and I's and O's. 2. Chronic hypoxic respiratory failure. We will continue oxygen supplementation at 3 to 4 L/minute by nasal cannula. Titrate to maintain O2 saturations greater than or equal to 90%. 3. Acute kidney injury on chronic kidney disease, stage 2. Avoid nephrotoxic agents and limit contrast exposure. Repeat creatinine in the a.m. 4. Tobacco abuse. We will offer smoking cessation resources prior to discharge. 5. Prophylaxis. SCDs while in bed. Pepcid 20 mg p.o. b.i.d. 6. Code status: Full. Surrogate medical decision maker is the patient's spouse. Job ID: [id number]
[2019-12-10 16:51] LABS: Troponin I 0.013 ng/mL (< 0.028)
[2019-12-10 17:22] VITALS: BMI 27.6
[2019-12-10] MEDS: Carvedilol 3.125 MG TAB PO SCH (17:48)
[2019-12-10] MEDS ORDERED: Melatonin 3 MG TAB PO PRN (21:44)
[2019-12-10] MEDS ORDERED: Lorazepam 0.5 MG TAB PO SCH (22:30)
[2019-12-10] MEDS: Famotidine 20 MG TAB PO SCH (22:47)
[2019-12-10] MEDS: Atorvastatin Calcium 10 MG TAB PO SCH (22:47)
[2019-12-11 05:28] LABS: Hemoglobin 12.3 g/dL (14.0-18.0); Lymphocytes 6 % (21-51); MDiff Complete? YES; Mean Corpuscular HGB CONC 31.6 g/dL (32.0-36.0); Mean Corpuscular Hemoglobin 29.3 pg (27.0-31.0); Mean Corpuscular Volume 92.9 fL (78.0-98.0); Mean Platelet Volume 10.6 fL (7.4-10.4); Monocytes 10 % (0-10); Neutrophil 84 % (42-75); Platelet Count 156 thou/uL (130-400); Platelet Morphology Comment Appears Adequate; Red Blood Cell (RBC) Count 4.19 mill/uL (4.70-6.10)
[2019-12-11 05:42] LABS: Anion Gap 11 mmol/L (10-20); BUN (Urea Nitrogen) 25 mg/dL (8.4-25.7); Calc. Creatinine Clearance 98 mL/min (70-130); Calcium 9.1 mg/dL (7.8-10.44); Carbon Dioxide 22 mmol/L (22-29); Chloride 112 mmol/L (98-107); Estimated GFR-MDRD 61; Glucose 152 mg/dL (70-105); Potassium 4.2 mmol/L (3.5-5.1); Sodium 141 mmol/L (136-145)
[2019-12-11] MEDS: Furosemide 40 MG/4 ML VIAL SLOW IVP SCH ×2 (06:33→14:47)
--- NOTE | 2019-12-11 07:18 | PDOC.HOSPP ---
- Subjective Encounter Date: 12/11/19 Encounter Time: 07:16 Subjective: CO sob, bloating RUQ discomfort ( ariana downsstairs to smoke when i first tried to see him) - Objective Vital Signs & Weight: Vital Signs (12 hours) Temp Pulse Resp BP Pulse Ox 12/11/19 04:00 98.3 F 99 20 90/55 L 93 L 12/11/19 00:00 97.8 F 99 18 107/69 92 L 12/10/19 20:00 97.5 F L 97 18 108/73 96 Weight Weight 218 lb 6.4 oz I&O: 12/10/19 12/11/19 12/12/19 06:59 06:59 06:59 Intake Total 300 Balance 300 Result Diagrams: 12/11/19 04:55 12/11/19 04:55 Hospitalist ROS - Medication Medications: Active Medications Generic Name Dose Route Start Last Admin Trade Name Freq PRN Reason Stop Dose Admin Acetaminophen 1,000 mg 12/10/19 12:53 12/10/19 14:16 Tylenol PO 1,000 mg Q6H PRN Administration Mild Pain (1-3) Atorvastatin Calcium 10 mg 12/10/19 21:00 12/10/19 22:47 Lipitor PO 10 mg HS LARISSA Administration Carvedilol 1.5625 mg 12/10/19 17:00 12/10/19 17:48 Coreg PO 1.5625 mg BID-WM LARISSA Administration Famotidine 20 mg 12/10/19 21:00 12/10/19 22:47 Pepcid PO 20 mg BID LARISSA Administration Furosemide 40 mg 12/10/19 14:00 12/11/19 06:33 Lasix SLOW IVP 40 mg 0600,1400 LARISSA Administration Melatonin 3 mg 12/10/19 21:44 12/10/19 22:47 Melatonin PO 3 mg HS PRN Administration Insomnia - Exam General Appearance: awake alert Neck: no JVD Heart: RRR, no murmur Respiratory: CTAB Gastrointestinal: soft, normal bowel sounds Extremities: no edema Hosp A/P (1) Chronic systolic HF (heart failure) Code(s): I50.22 - CHRONIC SYSTOLIC (CONGESTIVE) HEART FAILURE Status: Chronic (2) Chronic respiratory failure with hypoxia Code(s): J96.11 - CHRONIC RESPIRATORY FAILURE WITH HYPOXIA Status: Acute (3) Cardiomyopathy Code(s): I42.9 - CARDIOMYOPATHY, UNSPECIFIED Status: Chronic Qualifiers: Cardiomyopathy type: unspecified Qualified Code(s): I42.9 - Cardiomyopathy , unspecified (4) Tobacco abuse Code(s): Z72.0 - TOBACCO USE Status: Acute - Plan cont home meds consult cardiology [facility]
[2019-12-11] MEDS: Carvedilol 3.125 MG TAB PO SCH ×2 (09:03→17:23)
[2019-12-11] MEDS: Aspirin 81 mg Enteric Coated Tablet PO SCH (09:03)
[2019-12-11] MEDS: Spironolactone 25 MG TAB PO SCH (09:03)
[2019-12-11] MEDS: Famotidine 20 MG TAB PO SCH ×2 (09:03→22:14)
[2019-12-11] MEDS: Acetaminophen 500 MG TAB PO PRN (09:06)
--- NOTE | 2019-12-11 09:21 | ULT ---
ULTRASOUND ABDOMEN: HISTORY: Upper abdominal pain. FINDINGS: The liver demonstrates homogeneous echotexture without focal mass or intrahepatic ductal dilatation. Prominent vessels are seen in the liver. The spleen is normal. The gallbladder is contracted with a thickened wall measuring about 3 mm in thickness. No pericholecystic fluid is seen. No definite s hadowing gallstones are noted. The common duct measuring 4 mm in diameter. The visualized portions of the pancreas, aorta, and IVC are unremarkable. The right kidney is normal. There is a 3 cm cyst in the left kidney. IMPRESSION: 1. Contracted gallbladder with thickened wall. 2. Left renal cyst. POS: [facility]
[2019-12-11 11:20] LABS: Troponin I 0.052 ng/mL (< 0.028)
[2019-12-11] MEDS ORDERED: ALPRAZolam 0.5 MG TAB PO SCH (12:45)
[2019-12-11 13:08] LABS: Actual Bicarbonate (HCO3a) 18.6 mEq/L (22-28); Base Excess (BEa) -2.3 mEq/L (-2.0 to +3.0); Calcium, Ionized 1.14 mmol/L (1.12-1.30); Carboxyhemoglobin (COHb) 1.6 gm% (0.0-3.0); Hemoglobin (Hb) 13.3 g/dL (14.0-18.0); O2 Tension (PaO2) 111.8 mmHg (80.0-100.0); Potassium - ABG Lab 4.06 mmol/L (3.70-5.30); pH, Arterial 7.53 (7.35-7.45)
[2019-12-11 13:09] LABS: CO2 Tension 22.9 mmHg (35.0-45.0); Puncture Site RR
--- NOTE | 2019-12-11 15:39 | PDOC.EVN ---
Event Note - Event Note Event Note: GB contracted and thickened- will get HIDA scan
--- NOTE | 2019-12-11 16:41 | CON ---
DATE OF CONSULTATION: HISTORY OF PRESENT ILLNESS: The patient is a 54-year-old gentleman with a history of a cardiomyopathy, who presents with dyspnea and abdominal discomfort. The patient has a long history of cardiomyopathy. He states he has undergone several cardiac catheterization that revealed normal coronary arteries. The patient also has declined to have undergo further invasive evaluation. The patient has denied having placement of an AICD. The patient presented recently to the hospital with atypical chest pain. He declined to undergo further evaluation. The patient has subsequently been started on Entresto. He states that he presented with increasing dyspnea. The patient denied having any chest discomfort. He denies having any PND or chest discomfort. He did report having abdominal discomfort and difficulty breathing. The patient states when he received Ativan, his breathing markedly improved. PAST MEDICAL HISTORY: Cardiomyopathy. PAST SURGICAL HISTORY: Wrist surgery, leg surgery, colon surgery. SOCIAL HISTORY: Long history of tobacco abuse. ALLERGIES: NONE. MEDICATIONS: See nursing list. PHYSICAL EXAMINATION: GENERAL: Ill-appearing gentleman who is very anxious. VITAL SIGNS: Blood pressure 117/68. NECK: No jugular venous distention. LUNGS: Clear to auscultation. HEART: Regular rate and rhythm. Normal S1, S2. ABDOMEN: Distended. EXTREMITIES: Showed no edema. LABORATORY RESULTS: White blood cell count 10.0, hemoglobin 12.3, hematocrit 38.9, platelets 159. Sodium 141, potassium 4.2, chloride 112, bicarbonate 22, BUN 25, creatinine 1.24. BNP was 2447. His EKG revealed normal sinus rhythm, Q-wave suggestive of a previous septal infarct. Chest x-ray revealed cardiomegaly with clear lung vazquez. IMPRESSION: 1. Shortness of breath, probably secondary to mild congestive heart failure. 2. Severe cardiomyopathy. 3. History of normal coronary arteries. 4. Noncompliance. 5. Tobacco abuse. This gentleman presents with mild congestive heart failure. His weight has actually been stable from a cardiac standpoint. He is extremely anxious. I would recommend that he be started on antianxiety medications. We will follow this patient with you through hospitalization. Job ID: [id number] [facility]
[2019-12-11] MEDS: Atorvastatin Calcium 10 MG TAB PO SCH (22:13)
[2019-12-11] MEDS: ALPRAZolam 0.5 MG TAB PO SCH (22:13)
[2019-12-12] MEDS ORDERED: Nitroglycerin 0.4 MG TAB (25 Tab Bottle) SL PRN (02:26)
[2019-12-12 02:39] LABS: #Basophils 0.1 thou/uL (0.0-0.2); #Eosinphils 0.1 thou/uL (0.0-0.7); #Lymphocytes 3.2 thou/uL (1.20-3.40); #Monocytes 0.9 thou/uL (0.11-0.59); #Neutrophils 9.9 thou/uL (1.40-6.50); %Basophils 0.5 % (0.0-1.0); %Eosinophils 0.7 % (0.0-10.0); %Lymphocytes 22.6 % (21.0-51.0); %Monocytes 6.2 % (0.0-10.0); Hemoglobin 14.7 g/dL (14.0-18.0); Mean Corpuscular HGB CONC 32.7 g/dL (32.0-36.0); Mean Corpuscular Hemoglobin 30.3 pg (27.0-31.0); Mean Corpuscular Volume 92.5 fL (78.0-98.0); Mean Platelet Volume 10.2 fL (7.4-10.4); Platelet Count 189 thou/uL (130-400); RBC Distribution Width 14.6 % (11.5-14.5); Red Blood Cell (RBC) Count 4.85 mill/uL (4.70-6.10); White Blood Cell (WBC) Count 14.2 thou/uL (4.8-10.8)
[2019-12-12 03:01] LABS: Anion Gap 15 mmol/L (10-20); BUN (Urea Nitrogen) 27 mg/dL (8.4-25.7); Calc. Creatinine Clearance 84 mL/min (70-130); Calcium 9.5 mg/dL (7.8-10.44); Carbon Dioxide 18 mmol/L (22-29); Chloride 111 mmol/L (98-107); Estimated GFR-MDRD 51; Glucose 134 mg/dL (70-105); Magnesium 2.1 mg/dL (1.6-2.6); Potassium 4.1 mmol/L (3.5-5.1); Sodium 140 mmol/L (136-145)
[2019-12-12] MEDS: traMADol HCl 50 MG TAB PO PRN ×2 (03:51→19:44)
[2019-12-12] MEDS: Acetaminophen/Codeine 30-300mg Tablet PO PRN ×2 (05:59→15:48)
--- NOTE | 2019-12-12 07:31 | PDOC.HOSPP ---
- Subjective Encounter Date: 12/12/19 Encounter Time: 07:25 Subjective: still Co sob, etc - Objective Vital Signs & Weight: Vital Signs (12 hours) Temp Pulse Resp BP Pulse Ox 12/12/19 06:43 97 12/12/19 06:40 96 16 97 12/12/19 04:00 97.4 F L 20 113/66 97 12/12/19 00:00 99 12/11/19 23:50 97.5 F L 107 H 22 H 107/62 99 12/11/19 20:00 99 12/11/19 19:43 97.4 F L 99 20 99/69 99 Weight Weight 223 lb I&O: 12/11/19 12/12/19 12/13/19 06:59 06:59 06:59 Intake Total 300 900 Balance 300 900 Result Diagrams: 12/12/19 02:33 12/12/19 02:34 Hospitalist ROS - Medication Medications: Active Medications Generic Name Dose Route Start Last Admin Trade Name Freq PRN Reason Stop Dose Admin Acetaminophen 1,000 mg 12/10/19 12:53 12/11/19 09:06 Tylenol PO 1,000 mg Q6H PRN Administration Mild Pain (1-3) Acetaminophen/Codeine Phosphate 1 tab 12/12/19 05:00 12/12/19 05:59 Tylenol #3 PO 1 tab Q8H PRN Administration Moderate Pain (4-6) Albuterol/Ipratropium 3 ml 12/12/19 06:30 12/12/19 06:40 Duoneb NEB 3 ml [id number] LARISSA Administration Alprazolam 0.5 mg 12/11/19 21:00 12/11/19 22:13 Xanax PO 0.5 mg TID LARISSA Administration Aspirin 81 mg 12/11/19 09:00 12/11/19 09:03 Ecotrin PO 81 mg DAILY LARISSA Administration Atorvastatin Calcium 10 mg 12/10/19 21:00 12/11/19 22:13 Lipitor PO 10 mg HS LARISSA Administration Carvedilol 1.5625 mg 12/10/19 17:00 12/11/19 17:23 Coreg PO 1.5625 mg BID-WM LARISSA Administration Famotidine 20 mg 12/10/19 21:00 12/11/19 22:14 Pepcid PO 20 mg BID LARISSA Administration Melatonin 3 mg 12/10/19 21:44 12/10/19 22:47 Melatonin PO 3 mg HS PRN Administration Insomnia Nitroglycerin 0.4 mg 12/12/19 02:26 12/12/19 02:39 Nitrostat SL 0.4 mg Q5MIN PRN Administration Chest Pain Sacubitril/Valsartan 1 tab 12/11/19 09:00 12/11/19 21:25 Entresto 24 Mg-26 Mg Tablet PO Not Given BID LARISSA Spironolactone 25 mg 12/11/19 08:00 12/11/19 09:03 Aldactone PO 25 mg QAM-WM LARISSA Administration Tramadol HCl 50 mg 12/12/19 03:09 12/12/19 03:51 Ultram PO 50 mg Q4H PRN Administration Moderate Pain (4-6) - Exam General Appearance: awake alert Neck: no JVD Heart: RRR, no murmur Respiratory: CTAB Gastrointestinal: soft, normal bowel sounds Extremities: no edema Hosp A/P (1) Chronic systolic HF (heart failure) Code(s): I50.22 - CHRONIC SYSTOLIC (CONGESTIVE) HEART FAILURE Status: Chronic (2) Chronic respiratory failure with hypoxia Code(s): J96.11 - CHRONIC RESPIRATORY FAILURE WITH HYPOXIA Status: Acute (3) Cardiomyopathy Code(s): I42.9 - CARDIOMYOPATHY, UNSPECIFIED Status: Chronic Qualifiers: Cardiomyopathy type: unspecified Qualified Code(s): I42.9 - Cardiomyopathy , unspecified (4) Tobacco abuse Code(s): Z72.0 - TOBACCO USE Status: Acute - Plan cont home meds HIDA scan pending
--- NOTE | 2019-12-12 08:02 | RAD ---
XR Chest 1 View Portable HISTORY: Shortness of breath, tachypnea COMPARISON: 12/10/2019 FINDINGS: The heart size is normal. There is mild prominence of the pulmonary vascularity. Questionab le mild infiltrate is noted in the right infrahilar region.
[2019-12-12] MEDS: Aspirin 81 mg Enteric Coated Tablet PO SCH (08:54)
[2019-12-12] MEDS: ALPRAZolam 0.5 MG TAB PO SCH ×2 (08:54→15:47)
[2019-12-12] MEDS: Famotidine 20 MG TAB PO SCH (08:55)
[2019-12-12] MEDS: Carvedilol 3.125 MG TAB PO SCH ×2 (09:43→17:49)
[2019-12-12] MEDS: Spironolactone 25 MG TAB PO SCH (09:45)
[2019-12-12] MEDS: Furosemide 40 MG TAB PO SCH ×2 (13:14→15:43)
[2019-12-12 13:22] VITALS: BP 106/75; TEMP 96.8
--- NOTE | 2019-12-12 13:24 | NM ---
HEPATOBILIARY SCAN: HISTORY:Abnormal gallbladder ultrasound 12/11/2019. Upper abdominal pain. RADIOPHARMACEUTICAL: 5.4 mCi Technetium 99m Mebrofenin injected intravenously FINDINGS: The patient was pretreated with 1.9 mcg of IV CCK-8 over 30 minutes half an hour prior to the injecti on of the radioisotope. There is normal tracer extraction by the liver with normal excretion into the biliary tracts and smal l bowel loops and normal filling of the gallbladder. The calculated gallbladder ejection fraction following an IV infusion of 1.9 mcg CCK-8 or 30 minutes measures 77%. IMPRESSION:Normal exam.
--- NOTE | 2019-12-12 15:18 | DIS ---
DATE OF ADMISSION: 12/10/2019 DATE OF DISCHARGE: 12/12/2019 PRIMARY CARE PHYSICIAN: Pat Greenwood. DISPOSITION: Discharged to home. FINAL DIAGNOSES: 1. Acute on chronic systolic heart failure. 2. Chronic respiratory failure. 3. Tobacco abuse. 4. Cardiomyopathy. 5. Contracted gallbladder. 6. Dyslipidemia. 7. Chronic kidney disease, stage 3. DISCHARGE MEDICATIONS: 1. Lasix 40 mg twice a day. 2. Potassium chloride 10 mEq a day. 3. Coreg 1.5625 twice a day. 4. Entresto 24/ one twice a day. 5. Lipitor 10 mg a day. 6. Aspirin 81 mg a day. 7. Aldactone 25 mg a day. 8. Xanax 0.5 mg p.o. t.i.d. for one week. ALLERGIES: NO KNOWN DRUG ALLERGIES. DIET: No added salt, heart healthy. CODE STATUS: Full. PENDING AT THE TIME OF DISCHARGE: Nothing. HOSPITAL COURSE: The patient admitted through [facility] Emergency Department with shortness of breath. Has a history of severe cardiomyopathy. The patient was placed on telemetry unit, started on IV Lasix. The patient's O2 saturation has been 98% on room air. Chest x-ray shows no acute heart failure, infiltrate, etc. Cardiac enzymes, 0.052, 0.024, and 0.025. Creatinine 1.45, 1.24, 1.45. BNP was 2700+. Arterial blood gas revealed a pH of 7.5 with a CO2 of 23 and an O2 of 111. CBC was unremarkable. The patient was seen in consultation by Dr. Nicanor Haley. He considers his cardiovascular status stable. Recommended adding Xanax because of his anxiety level. Because he complained of tightness in the lower chest, upper abdomen, abdominal ultrasound was done, which revealed a contracted gallbladder. Because of contracted gallbladder, a HIDA scan was done, which is normal. I have discussed the results with the patient. He is being discharged. Dr. Haley requested that I give him a prescription for Xanax as an outpatient, which I am not totally comfortable with, but I have given him 7 days, so I have asked him to see his PCP in 3 days to follow up with Dr. Haley per his recommendations. Job ID: [id number]
--- NOTE | 2019-12-15 14:20 | EKG ---
Test Reason : Blood Pressure : / mmHG Vent. Rate : 096 BPM Atrial Rate : 096 BPM P-R Int : 170 ms QRS Dur : 102 ms QT Int : 374 ms P-R-T Axes : 065 036 110 degrees QTc Int : 472 ms Normal sinus rhythm Possible Left atrial enlargement Low voltage QRS Septal infarct , age undetermined Possible Lateral infarct , age undetermined Abnormal ECG Confirmed by BENJIE GRIMES DO ([id number]), social media editor JENNIFER GANDHI ([id number]) on 12/15/2019 2:20:26 PM Referred By: Confirmed By:BENJIE GRIMES DO
== END 2019-12-12 19:58 | disposition home or self-care (01) | DRG 291 ==
LOC: ERS 10:02 → ERHOLD 11:47 → 2SE 12:53
PROVIDERS: ADMIT Family Medicine; ATTEND Family Medicine
DX: I13.0 Hypertensive heart and chronic kidney disease with heart failure and stage 1 through stage 4 chronic kidney disease, or unspecified chronic kidney disease (principal); I50.23 Acute on chronic systolic (congestive) heart failure; J96.11 Chronic respiratory failure with hypoxia; K82.0 Obstruction of gallbladder; N17.9 Acute kidney failure, unspecified; F17.210 Nicotine dependence, cigarettes, uncomplicated; I42.9 Cardiomyopathy, unspecified; E78.5 Hyperlipidemia, unspecified; N18.3 Chronic kidney disease, stage 3 (moderate); F41.9 Anxiety disorder, unspecified
CPT/HCPCS: 36415; 71045; 78227; 80048; 80053; 82550; 82553; 82805; 83735; 83880; 84443; 84484; 85007; 85025; 85027; 93005; 93010; 93306; 93975; 94640; 94760; 96374; 96375; A9537; J1940; J2060; J2930; J7620

== ENCOUNTER 2021-12-27 04:21 | Inpatient (IN) | payer MEDICARE ==
[2021-12-27] MEDS ORDERED: Digoxin 0.5 MG/2 ML AMP ONE ×2 (04:52→11:21)
[2021-12-27 05:30] LABS: #Basophils 0.1 thou/uL (0.0-0.2); #Eosinphils 0.1 thou/uL (0.0-0.7); #Monocytes 0.9 thou/uL (0.11-0.59); #Neutrophils 4.9 thou/uL (1.40-6.50); %Basophils 0.7 % (0.0-1.0); %Eosinophils 1.4 % (0.0-10.0); %Lymphocytes 24.8 % (21.0-51.0); %Monocytes 11.7 % (0.0-10.0); %Neutrophils 61.4 % (42.0-75.0); Hemoglobin 14.7 g/dL (14.0-18.0); Mean Corpuscular HGB CONC 32.9 g/dL (32.0-36.0); Mean Corpuscular Hemoglobin 29.5 pg (27.0-31.0); Mean Corpuscular Volume 89.6 fL (78.0-98.0); Mean Platelet Volume 10.4 fL (7.4-10.4); Platelet Count 199 thou/uL (130-400)
[2021-12-27 05:51] LABS: ALT (SGPT) 9 U/L (8-55); AST (SGOT) 16 U/L (5-34); Albumin 3.7 g/dL (3.5-5.0); Alkaline Phosphatase 79 U/L (40-110); Anion Gap 14 mmol/L (10-20); BUN (Urea Nitrogen) 44 mg/dL (8.4-25.7); Bilirubin, Total 1.1 mg/dL (0.2-1.2); Calc. Creatinine Clearance 0 mL/min (70-130); Calcium 9.1 mg/dL (7.8-10.44); Carbon Dioxide 21 mmol/L (22-29); Chloride 105 mmol/L (98-107); Globulin 2.7 g/dL (2.4-3.5); Glucose 118 mg/dL (70-105); Potassium 4.4 mmol/L (3.5-5.1); Protein, Total 6.4 g/dL (6.0-8.3); Sodium 136 mmol/L (136-145)
[2021-12-27 06:14] LABS: CKMB 2.8 ng/mL (0-6.6)
[2021-12-27] MEDS ORDERED: Enoxaparin Sodium 100 MG/ML SYRINGE ONE (06:52)
[2021-12-27] MEDS ORDERED: Diltiazem 125 MG/25 ML ONE (06:53)
[2021-12-27] MEDS ORDERED: traMADol HCl 50 MG TAB ONE (08:12)
[2021-12-27] MEDS ORDERED: ALPRAZolam 0.25 MG TAB ONE ×2 (08:12→09:33)
[2021-12-27] MEDS: ALPRAZolam 0.25 MG TAB PO PRN (08:15)
[2021-12-27] MEDS: traMADol HCl 50 MG TAB PO PRN (08:15)
[2021-12-27] MEDS ORDERED: Acetaminophen 325 MG TAB PO PRN (08:28)
[2021-12-27] MEDS ORDERED: Bisacodyl 5 MG TAB PO PRN (08:28)
[2021-12-27 08:31] LABS: Troponin I 0.204 ng/mL (< 0.028)
[2021-12-27] MEDS ORDERED: Enoxaparin Sodium 40 MG/0.4 ML SYRINGE SC SCH (09:00)
[2021-12-27] MEDS ORDERED: Furosemide 40 MG TAB PO SCH (09:00)
[2021-12-27] MEDS ORDERED: Furosemide 20 MG/2 ML VIAL SLOW IVP SCH (09:00)
[2021-12-27] MEDS ORDERED: Iopamidol 370 76% 100 ML VIAL ONE (09:24)
[2021-12-27] MEDS ORDERED: ALPRAZolam 0.25 MG TAB PO SCH (09:30)
[2021-12-27] MEDS ORDERED: Nicotine 14 MG PATCH ONE (09:33)
[2021-12-27] MEDS ORDERED: Aspirin Chewable 81 MG TAB ONE (09:33)
[2021-12-27] MEDS ORDERED: Ondansetron PF 4 MG/2 ML Vial ONE (09:33)
[2021-12-27] MEDS ORDERED: Furosemide 20 MG/2 ML VIAL ONE (09:33)
[2021-12-27 09:39] LABS: SARS-CoV-2 NAA Rapid Test Not Detected (NotDetected)
[2021-12-27] MEDS ORDERED: Heparin 1,000 UNITS/ML VIAL ONE (11:10)
[2021-12-27 11:27] LABS: Troponin I 0.203 ng/mL (< 0.028)
[2021-12-27] MEDS: Indomethacin 25 mg Capsule PO SCH ×3 (14:35→21:10)
[2021-12-27] MEDS: Aspirin 81 mg Enteric Coated Tablet PO SCH (14:35)
[2021-12-27] MEDS: Nicotine 14 MG PATCH TD SCH (14:36)
[2021-12-27] MEDS: Furosemide 20 MG/2 ML VIAL SLOW IVP SCH (14:36)
[2021-12-27 14:42] VITALS: BMI 28.7
[2021-12-27] MEDS ORDERED: FLU VACC QS2021-22(6MOS UP)/PF 60 MCG/0.5 ML SYRINGE IM ONE (15:00)
[2021-12-27] MEDS ORDERED: Dextrose 5 % And 0.9 % NaCl 1,000 ML IV SCH (15:30)
[2021-12-27] MEDS ORDERED: Amiodarone In Dextrose 200 ML IVPB SCH (17:45)
[2021-12-27] MEDS: Amiodarone 450 MG, Admixture Fee 1 EACH in Dextrose 5% in Water 250 ML IVPB SCH (18:38)
[2021-12-27] MEDS: DOBUTamine 500 mg/250 ml 250 ML IVPB SCH (18:38)
[2021-12-27] MEDS: Atorvastatin Calcium 10 MG TAB PO SCH (21:10)
[2021-12-27] MEDS ORDERED: Enoxaparin Sodium 100 MG/ML SYRINGE SC SCH (22:00)
[2021-12-28] MEDS: Amiodarone 450 MG, Admixture Fee 1 EACH in Dextrose 5% in Water 250 ML IVPB SCH (00:55)
[2021-12-28 04:08] LABS: #Eosinphils 0.1 thou/uL (0.0-0.7); #Lymphocytes 1.1 thou/uL (1.20-3.40); #Monocytes 0.7 thou/uL (0.11-0.59); #Neutrophils 6.5 thou/uL (1.40-6.50); %Basophils 0.4 % (0.0-1.0); %Eosinophils 0.6 % (0.0-10.0); %Lymphocytes 12.9 % (21.0-51.0); %Neutrophils 78.1 % (42.0-75.0); Hemoglobin 13.9 g/dL (14.0-18.0); Mean Corpuscular HGB CONC 32.5 g/dL (32.0-36.0); Mean Corpuscular Hemoglobin 29.6 pg (27.0-31.0); Mean Platelet Volume 10.4 fL (7.4-10.4); Platelet Count 167 thou/uL (130-400); Red Blood Cell (RBC) Count 4.71 mill/uL (4.70-6.10); White Blood Cell (WBC) Count 8.4 thou/uL (4.8-10.8)
[2021-12-28 04:31] LABS: Anion Gap 13 mmol/L (10-20); BUN (Urea Nitrogen) 42 mg/dL (8.4-25.7); Calc. Creatinine Clearance 81 mL/min (70-130); Calcium 8.9 mg/dL (7.8-10.44); Carbon Dioxide 22 mmol/L (22-29); Chloride 103 mmol/L (98-107); Glucose 153 mg/dL (70-105); Sodium 134 mmol/L (136-145)
[2021-12-28 06:50] VITALS: BP 90/54
[2021-12-28] MEDS ORDERED: Spironolactone 25 MG TAB PO SCH (08:00)
[2021-12-28] MEDS: Aspirin 81 mg Enteric Coated Tablet PO SCH (09:23)
[2021-12-28] MEDS: Enoxaparin Sodium 100 MG/ML SYRINGE SC SCH ×2 (09:23→21:46)
[2021-12-28] MEDS: Furosemide 20 MG/2 ML VIAL SLOW IVP SCH ×2 (09:23→14:49)
[2021-12-28] MEDS: Nicotine 14 MG PATCH TD SCH ×2 (09:24→21:43)
[2021-12-28] MEDS ORDERED: Digoxin 0.5 MG/2 ML AMP SLOW IVP SCH (14:30)
[2021-12-28 16:07] LABS: ALT (SGPT) 11 U/L (8-55); AST (SGOT) 14 U/L (5-34); Albumin 3.5 g/dL (3.5-5.0); Alkaline Phosphatase 87 U/L (40-110); Anion Gap 12 mmol/L (10-20); BUN (Urea Nitrogen) 38 mg/dL (8.4-25.7); Bilirubin, Total 0.8 mg/dL (0.2-1.2); Calc. Creatinine Clearance 79 mL/min (70-130); Calcium 8.9 mg/dL (7.8-10.44); Carbon Dioxide 25 mmol/L (22-29); Chloride 103 mmol/L (98-107); Globulin 2.6 g/dL (2.4-3.5); Glucose 124 mg/dL (70-105); Magnesium 1.9 mg/dL (1.6-2.6); Protein, Total 6.1 g/dL (6.0-8.3); Sodium 136 mmol/L (136-145)
[2021-12-28] MEDS ORDERED: Lidocaine 1% (PF) 30 ML VIAL ONE (17:30)
[2021-12-28] MEDS ORDERED: Potassium Chloride 20 MEQ in Premix Bag 1 BAG IVPB SCH (19:15)
[2021-12-28] MEDS ORDERED: Magnesium 2 GM/50 ML 2 GM in Premix Bag 1 BAG IVPB SCH (19:15)
[2021-12-28] MEDS ORDERED: Furosemide 40 MG/4 ML VIAL SLOW IVP SCH (19:15)
[2021-12-28] MEDS ORDERED: Norepinephrine 8 MG/0.9% NS 250 ML IVPB SCH (19:30)
[2021-12-28] MEDS: DOBUTamine 500 mg/250 ml 250 ML IVPB SCH (21:36)
[2021-12-28] MEDS: Atorvastatin Calcium 10 MG TAB PO SCH (21:47)
[2021-12-28] MEDS: ALPRAZolam 0.25 MG TAB PO PRN (21:47)
[2021-12-28] MEDS: traMADol HCl 50 MG TAB PO PRN (22:22)
[2021-12-29] MEDS ORDERED: Morphine 4 MG/ML VIAL SLOW IVP SCH ×2 (01:00→06:15)
[2021-12-29] MEDS: traMADol HCl 50 MG TAB PO PRN (04:31)
[2021-12-29 05:23] LABS: #Eosinphils 0.1 thou/uL (0.0-0.7); #Lymphocytes 1.6 thou/uL (1.20-3.40); #Monocytes 0.7 thou/uL (0.11-0.59); #Neutrophils 4.9 thou/uL (1.40-6.50); %Basophils 0.5 % (0.0-1.0); %Eosinophils 1.7 % (0.0-10.0); %Lymphocytes 21.7 % (21.0-51.0); %Monocytes 9.9 % (0.0-10.0); %Neutrophils 66.1 % (42.0-75.0); Hemoglobin 13.8 g/dL (14.0-18.0); Mean Corpuscular HGB CONC 32.6 g/dL (32.0-36.0); Mean Corpuscular Hemoglobin 29.9 pg (27.0-31.0); Mean Corpuscular Volume 91.6 fL (78.0-98.0); Mean Platelet Volume 10.8 fL (7.4-10.4); Platelet Count 152 thou/uL (130-400); RBC Distribution Width 13.8 % (11.5-14.5); Red Blood Cell (RBC) Count 4.61 mill/uL (4.70-6.10); White Blood Cell (WBC) Count 7.3 thou/uL (4.8-10.8)
[2021-12-29 05:37] LABS: Anion Gap 12 mmol/L (10-20); BUN (Urea Nitrogen) 29 mg/dL (8.4-25.7); Calc. Creatinine Clearance 80 mL/min (70-130); Calcium 9.4 mg/dL (7.8-10.44); Carbon Dioxide 31 mmol/L (22-29); Chloride 99 mmol/L (98-107); Glucose 128 mg/dL (70-105); Potassium 3.8 mmol/L (3.5-5.1); Sodium 138 mmol/L (136-145)
[2021-12-29] MEDS: Amiodarone 450 MG, Admixture Fee 1 EACH in Dextrose 5% in Water 250 ML IVPB SCH (08:22)
[2021-12-29] MEDS ORDERED: AcetaZOLAMIDE 250 MG TAB PO SCH (09:00)
[2021-12-29] MEDS: Nicotine 14 MG PATCH TD SCH ×2 (09:00→20:23)
[2021-12-29] MEDS: ALPRAZolam 0.25 MG TAB PO PRN (09:22)
[2021-12-29] MEDS: Enoxaparin Sodium 100 MG/ML SYRINGE SC SCH ×2 (09:24→20:23)
[2021-12-29] MEDS: Aspirin 81 mg Enteric Coated Tablet PO SCH (09:24)
[2021-12-29] MEDS: DOBUTamine 500 mg/250 ml 250 ML IVPB SCH (09:44)
[2021-12-29 09:56] LABS: Magnesium 2.2 mg/dL (1.6-2.6)
[2021-12-29] MEDS ORDERED: Potassium Chloride 40 MEQ in Premix Bag 1 BAG IVPB SCH (10:00)
[2021-12-29] MEDS: Furosemide 20 MG/2 ML VIAL SLOW IVP SCH ×2 (11:38→20:23)
[2021-12-29] MEDS ORDERED: methylPREDNISolone Sod Succ/PF 125 MG/2 ML VIAL IVP SCH (12:00)
[2021-12-29] MEDS ORDERED: Ketamine 50 MG/ML (10ML VIAL) ONE (14:16)
[2021-12-29] MEDS ORDERED: PROPOFOL 20 ML ONE (14:16)
[2021-12-29] MEDS: Ondansetron PF 4 MG/2 ML Vial IVP PRN ×2 (15:57→20:29)
[2021-12-29] MEDS: Atorvastatin Calcium 10 MG TAB PO SCH (20:23)
[2021-12-29] MEDS: Morphine 4 MG/ML VIAL SLOW IVP PRN (22:58)
[2021-12-30] MEDS: Morphine 4 MG/ML VIAL SLOW IVP PRN ×4 (04:33→20:53)
[2021-12-30 05:10] LABS: #Lymphocytes 0.4 thou/uL (1.20-3.40); #Monocytes 0.4 thou/uL (0.11-0.59); #Neutrophils 7.8 thou/uL (1.40-6.50); %Basophils 0.1 % (0.0-1.0); %Eosinophils 0.1 % (0.0-10.0); %Lymphocytes 4.9 % (21.0-51.0); %Neutrophils 90.8 % (42.0-75.0); Hemoglobin 14.7 g/dL (14.0-18.0); Mean Corpuscular HGB CONC 32.1 g/dL (32.0-36.0); Mean Corpuscular Hemoglobin 29.5 pg (27.0-31.0); Mean Corpuscular Volume 92.1 fL (78.0-98.0); Platelet Count 165 thou/uL (130-400); Red Blood Cell (RBC) Count 4.96 mill/uL (4.70-6.10); White Blood Cell (WBC) Count 8.6 thou/uL (4.8-10.8)
[2021-12-30 05:26] LABS: Anion Gap 15 mmol/L (10-20); BUN (Urea Nitrogen) 19 mg/dL (8.4-25.7); Calc. Creatinine Clearance 84 mL/min (70-130); Calcium 9.4 mg/dL (7.8-10.44); Carbon Dioxide 23 mmol/L (22-29); Chloride 99 mmol/L (98-107); Glucose 171 mg/dL (70-105); Magnesium 1.8 mg/dL (1.6-2.6); Potassium 4.4 mmol/L (3.5-5.1); Sodium 133 mmol/L (136-145)
[2021-12-30] MEDS ORDERED: Magnesium 2 GM/50 ML 2 GM in Premix Bag 1 BAG IVPB SCH (08:45)
[2021-12-30] MEDS ORDERED: Electrolyte Replacement Protocol FS PRN (08:45)
[2021-12-30] MEDS ORDERED: Potassium Chloride 20 MEQ in Premix Bag 1 BAG IVPB SCH (08:45)
[2021-12-30] MEDS ORDERED: Digoxin 0.5 MG/2 ML AMP SLOW IVP SCH (09:00)
[2021-12-30] MEDS: Enoxaparin Sodium 100 MG/ML SYRINGE SC SCH ×2 (09:21→21:05)
[2021-12-30] MEDS: Furosemide 20 MG/2 ML VIAL SLOW IVP SCH ×2 (09:21→20:55)
[2021-12-30] MEDS: Aspirin 81 mg Enteric Coated Tablet PO SCH (09:21)
[2021-12-30] MEDS: Amiodarone 200 MG TAB PO SCH ×2 (09:22→21:04)
[2021-12-30] MEDS: predniSONE 20 MG TAB PO SCH (09:22)
[2021-12-30] MEDS: DOBUTamine 500 mg/250 ml 250 ML IVPB SCH ×2 (10:04→20:59)
[2021-12-30] MEDS: Atorvastatin Calcium 10 MG TAB PO SCH (21:05)
[2021-12-30] MEDS: Nicotine 14 MG PATCH TD SCH (21:05)
[2021-12-31] MEDS: Morphine 4 MG/ML VIAL SLOW IVP PRN ×3 (02:26→18:35)
[2021-12-31] MEDS ORDERED: Magnesium 2 GM/50 ML 2 GM in Premix Bag 1 BAG IVPB SCH (07:00)
[2021-12-31] MEDS: DOBUTamine 500 mg/250 ml 250 ML IVPB SCH ×2 (07:09→22:48)
[2021-12-31] MEDS: Enoxaparin Sodium 100 MG/ML SYRINGE SC SCH ×2 (08:23→20:40)
[2021-12-31] MEDS: Furosemide 40 MG/4 ML VIAL SLOW IVP SCH (08:24)
[2021-12-31] MEDS: predniSONE 20 MG TAB PO SCH (08:24)
[2021-12-31] MEDS: Aspirin 81 mg Enteric Coated Tablet PO SCH (08:25)
[2021-12-31] MEDS: Amiodarone 200 MG TAB PO SCH ×2 (08:25→20:41)
[2021-12-31 09:10] LABS: Anion Gap 14 mmol/L (10-20); BUN (Urea Nitrogen) 27 mg/dL (8.4-25.7); Calc. Creatinine Clearance 91 mL/min (70-130); Calcium 9.5 mg/dL (7.8-10.44); Carbon Dioxide 26 mmol/L (22-29); Chloride 99 mmol/L (98-107); Glucose 122 mg/dL (70-105); Potassium 4.6 mmol/L (3.5-5.1); Sodium 134 mmol/L (136-145)
[2021-12-31 14:05] LABS: SARS-CoV-2 NAA Rapid Test Not Detected (NotDetected)
[2021-12-31] MEDS: Atorvastatin Calcium 10 MG TAB PO SCH (20:40)
[2021-12-31] MEDS: Nicotine 14 MG PATCH TD SCH (20:40)
[2021-12-31] MEDS: ALPRAZolam 0.25 MG TAB PO PRN (22:10)
[2022-01-01] MEDS: Morphine 4 MG/ML VIAL SLOW IVP PRN ×2 (00:35→08:42)
[2022-01-01 05:14] LABS: Anion Gap 13 mmol/L (10-20); BUN (Urea Nitrogen) 33 mg/dL (8.4-25.7); Calc. Creatinine Clearance 98 mL/min (70-130); Calcium 9.4 mg/dL (7.8-10.44); Carbon Dioxide 26 mmol/L (22-29); Chloride 98 mmol/L (98-107); Glucose 116 mg/dL (70-105); Magnesium 2.3 mg/dL (1.6-2.6); Potassium 4.2 mmol/L (3.5-5.1); Sodium 133 mmol/L (136-145)
[2022-01-01] MEDS: ALPRAZolam 0.25 MG TAB PO PRN (05:20)
[2022-01-01] MEDS: Furosemide 40 MG/4 ML VIAL SLOW IVP SCH (05:37)
[2022-01-01] MEDS: Aspirin 81 mg Enteric Coated Tablet PO SCH (08:41)
[2022-01-01] MEDS: Enoxaparin Sodium 100 MG/ML SYRINGE SC SCH (08:41)
[2022-01-01] MEDS: predniSONE 20 MG TAB PO SCH (08:42)
[2022-01-01] MEDS: Amiodarone 200 MG TAB PO SCH (08:42)
[2022-01-01] MEDS ORDERED: Potassium Chloride 20 MEQ in Premix Bag 1 BAG IVPB SCH (09:30)
[2022-01-01] MEDS ORDERED: Milrinone Lactate/D5W 20 MG in Premix Bag 1 BAG IV SCH (09:45)
[2022-01-01 11:37] VITALS: TEMP 97.9
== END 2022-01-01 10:15 | disposition short-term general hospital (02) | DRG 291 ==
LOC: SUATTDRO 04:21 → ERS 04:21 → ERHOLD 06:41 → IMCU/EMU 14:57 → CCU 12-28 18:09
PROVIDERS: ADMIT Internal Medicine; ATTEND Internal Medicine
PROC: 3E043XZ Introduction of Vasopressor into Central Vein, Percutaneous Approach (ICD-10-PCS; 2021-12-28)
PROC: 06HY33Z Insertion of Infusion Device into Lower Vein, Percutaneous Approach (ICD-10-PCS; 2021-12-28)
PROC: B24BZZ4 Ultrasonography of Heart with Aorta, Transesophageal (ICD-10-PCS; 2021-12-29)
PROC: 5A2204Z Restoration of Cardiac Rhythm, Single (ICD-10-PCS; 2021-12-29)
PROC: 02HV33Z Insertion of Infusion Device into Superior Vena Cava, Percutaneous Approach (ICD-10-PCS; principal; 2021-12-30)
PROC: B548ZZA Ultrasonography of Superior Vena Cava, Guidance (ICD-10-PCS; 2021-12-30)
DX: I11.0 Hypertensive heart disease with heart failure (principal); I50.43 Acute on chronic combined systolic (congestive) and diastolic (congestive) heart failure; R57.0 Cardiogenic shock; J96.21 Acute and chronic respiratory failure with hypoxia; N17.9 Acute kidney failure, unspecified; J98.11 Atelectasis; I48.0 Paroxysmal atrial fibrillation; Z20.822 Contact with and (suspected) exposure to COVID-19; I42.0 Dilated cardiomyopathy; F17.210 Nicotine dependence, cigarettes, uncomplicated; I34.0 Nonrheumatic mitral (valve) insufficiency; I95.9 Hypotension, unspecified; M10.9 Gout, unspecified; Z79.82 Long term (current) use of aspirin; Z79.899 Other long term (current) drug therapy; Z98.890 Other specified postprocedural states; Z71.6 Tobacco abuse counseling
CPT/HCPCS: 36415; 36569; 71045; 71275; 80048; 80053; 82553; 83735; 83880; 84484; 85025; 85379; 93005; 93312; C1751; J0282; J1160; J1250; J1644; J1650; J1940; J2260; J2270; J2405; J2704; J2930; J3475; J3480; J7070; J7512; Q9967; U0002

== ENCOUNTER 2022-05-17 11:28 | Emergency (ER) | payer MEDICARE ==
[2022-05-17] MEDS ORDERED: Ketorolac Tromethamine 30 MG/ML VIAL ONE (12:27)
[2022-05-17] MEDS ORDERED: Fentanyl 100 MCG/2 ML VIAL ONE (12:27)
[2022-05-17] MEDS ORDERED: CEFAZOLIN 1 GM VIAL ONE (12:27)
[2022-05-17] MEDS ORDERED: Dexamethasone 10 MG/ML VIAL ONE (12:29)
[2022-05-17] MEDS ORDERED: Lorazepam 2 MG/ML VIAL ONE (12:56)
== END 2022-05-17 13:49 | disposition home or self-care (01) ==
LOC: ERS 11:28
DX: M54.12 Radiculopathy, cervical region (principal); I11.0 Hypertensive heart disease with heart failure; I50.9 Heart failure, unspecified; E66.9 Obesity, unspecified; Z79.82 Long term (current) use of aspirin; Z79.899 Other long term (current) drug therapy; Z79.01 Long term (current) use of anticoagulants
CPT/HCPCS: 96374; 96375; J0690; J1100; J1885; J1956; J2060; J3010

== ENCOUNTER 2023-02-04 22:22 | Emergency (ER) | payer MEDICARE, OTHER ==
[2023-02-04 23:08] LABS: #Eosinphils 0.5 thou/uL (0.0-0.7); #Lymphocytes 1.4 thou/uL (1.20-3.40); #Neutrophils 9.6 thou/uL (1.40-6.50); %Basophils 0.4 % (0.0-1.0); %Eosinophils 3.6 % (0.0-10.0); %Lymphocytes 11.4 % (21.0-51.0); %Monocytes 7.9 % (0.0-10.0); %Neutrophils 76.8 % (42.0-75.0); Hemoglobin 17.5 g/dL (14.0-18.0); Mean Corpuscular HGB CONC 34.4 g/dL (32.0-36.0); Mean Corpuscular Hemoglobin 30.7 pg (27.0-31.0); Mean Corpuscular Volume 89.4 fl (78.0-98.0); Mean Platelet Volume 10.8 fL (7.4-10.4); Platelet Count 140 10x3/uL (130-400); RBC Distribution Width 13.4 % (11.5-14.5); White Blood Cell (WBC) Count 12.5 10x3/uL (4.8-10.8)
[2023-02-04 23:37] LABS: Phosphorus 3.6 mg/dL (2.3-4.7)
[2023-02-04 23:47] LABS: ALT (SGPT) 17 U/L (8-55); AST (SGOT) 39 U/L (5-34); Albumin 3.5 g/dL (3.5-5.0); Alkaline Phosphatase 181 U/L (40-110); Anion Gap 17 mmol/L (10-20); BUN (Urea Nitrogen) 23 mg/dL (8.4-25.7); Bilirubin, Total 0.7 mg/dL (0.2-1.2); Calc. Creatinine Clearance 0 mL/min (70-130); Calcium 9.2 mg/dL (7.8-10.44); Carbon Dioxide 22 mmol/L (22-29); Chloride 95 mmol/L (98-107); Estimated GFR 56; Glucose 593 mg/dL (70-105); Lipase 59 U/L (8-78); Potassium 5.2 mmol/L (3.5-5.1); Protein, Total 7.5 g/dL (6.0-8.3); Sodium 129 mmol/L (136-145)
[2023-02-05] MEDS ORDERED: Insulin Regular 300 UNITS/3 ML VIAL ONE (00:28)
[2023-02-05 00:36] LABS: Actual Bicarbonate (HCO3v) 23 mEq/L (22-28); Base Excess -2.5 mEq/L (-2.0 to +3.0); Calcium, Ionized (venous) 1.07 mmol/L (1.16-1.32); Chloride (VBG) 98 mmol/L (98-106); Hemoglobin (Hb) 16.8 g/dL (13.1-17.2); Potassium (VBG) 4.57 mmol/L (3.70-5.30); pH (venous) 7.36 (7.32-7.43)
[2023-02-05] MEDS ORDERED: HumaLOG 300 UNITS/3 ML VIAL ONE (00:36)
[2023-02-05 00:44] LABS: INR-International Normal Ratio 2.1; PTT 34.3 sec (22.9-36.1); Prothrombin Time 24.3 sec (12.0-14.7)
[2023-02-05 00:56] LABS: Bilirubin Negative (Negative); Blood, Urine Negative (Negative); Clarity Clear (Clear); Glucose, Urine (Dipstick) Greater than 1000 mg/dL (Negative); Ketone, Urine 20 mg/dL (Negative); Leukocyte Negative Leu/uL (Negative); Nitrite Negative (Negative); Protein, Urine (Dipstick) Negative (Neg-Trace); Specific Gravity, Urine 1.028 (1.002-1.036); Urobilinogen Normal mg/dL (Less than 2); pH, Urine 6.5 (5.0-9.0)
== END 2023-02-05 02:25 | disposition home or self-care (01) ==
LOC: ERS 22:22
DX: R73.9 Hyperglycemia, unspecified (principal); D72.829 Elevated white blood cell count, unspecified; I11.0 Hypertensive heart disease with heart failure; I50.9 Heart failure, unspecified; E66.9 Obesity, unspecified; F17.210 Nicotine dependence, cigarettes, uncomplicated; Z79.01 Long term (current) use of anticoagulants; Z79.82 Long term (current) use of aspirin; Z79.899 Other long term (current) drug therapy
CPT/HCPCS: 36416; 80053; 81003; 82010; 82805; 83690; 83735; 83930; 84100; 85025; 85610; 85730; 93005; 96360; J1815

== ENCOUNTER 2025-11-12 13:22 | Emergency (ER) | payer MEDICARE ==
[2025-11-12 14:31] LABS: #Basophils Less than 0.03 10x3/uL (0.0-0.2); #Eosinophils 0.08 10x3/uL (0.0-0.7); #Monocytes 0.77 10x3/uL (0.11-0.59); #Neutrophils 5.15 10x3/uL (1.40-6.50); %Basophils 0.3 % (0.0-1.0); %Eosinophils 1.1 % (0.0-10.0); %Lymphocytes 14.1 % (21.0-51.0); %Monocytes 11.0 % (0.0-10.0); %Neutrophils 73.2 % (42.0-75.0); Hematocrit 38.4 % (42.0-52.0); Hemoglobin 11.4 g/dL (14.0-18.0); Mean Corpuscular Hemoglobin 22.5 pg (27.0-31.0); Mean Corpuscular Volume 75.7 fL (78.0-98.0); Platelet Count 257 10x3/uL (130-400); Red Blood Cell (RBC) Count 5.07 mill/uL (4.70-6.10); White Blood Cell (WBC) Count 7.03 10x3/uL (4.8-10.8)
[2025-11-12 15:00] LABS: ALT (SGPT) 15 U/L (Less than 45); AST (SGOT) 26 U/L (11-34); Albumin 3.5 g/dL (3.1-4.5); Alkaline Phosphatase 265 U/L (40-110); Anion Gap 13 mmol/L (10-20); BUN (Urea Nitrogen) 8 mg/dL (8.4-25.7); Bilirubin, Total 0.9 mg/dL (0.3-1.2); Calc. Creatinine Clearance 0 mL/min (70-130); Calcium 9.6 mg/dL (7.8-10.44); Carbon Dioxide 26 mmol/L (22-29); Chloride 102 mmol/L (98-107); Globulin 3.5 g/dL (2.4-3.5); Glucose 162 mg/dL (70-105); Potassium 4.1 mmol/L (3.5-5.1); Sodium 137 mmol/L (136-145)
[2025-11-12 16:55] LABS: INR-International Normal Ratio 2.1; Prothrombin Time 23.7 sec (12.0-14.7)
[2025-11-12] MEDS ORDERED: Furosemide 40 MG TAB ONE (17:00)
== END 2025-11-12 18:16 | disposition left against medical advice (07) ==
LOC: ERS 13:22
DX: S22.42XA Multiple fractures of ribs, left side, initial encounter for closed fracture (principal); S22.31XA Fracture of one rib, right side, initial encounter for closed fracture; I11.0 Hypertensive heart disease with heart failure; I50.9 Heart failure, unspecified; E66.9 Obesity, unspecified; F17.210 Nicotine dependence, cigarettes, uncomplicated; Z95.811 Presence of heart assist device; Z68.26 Body mass index [BMI] 26.0-26.9, adult; W19.XXXA Unspecified fall, initial encounter; Y93.01 Activity, walking, marching and hiking
CPT/HCPCS: 70450; 71250; 72125; 80053; 83605; 83880; 84484; 85025; 85610; 93005; 93970; J2270; 96374; 96376